=== PATIENT | male | born 1950 | race Caucasian/White ===

== ENCOUNTER → 2020-07-17 14:08 | Outpatient (BNVA) | payer MEDICARE, MEDICAID, SELFPAY | PROVIDERS: Visit Provider Anesthesiology | DX: M46.1 Sacroiliitis, not elsewhere classified (principal); M54.16 Radiculopathy, lumbar region; M51.36 Other intervertebral disc degeneration, lumbar region | CPT/HCPCS: 99202 ==

== ENCOUNTER 2020-07-23 05:41 | Outpatient (REF) | payer MEDICARE, MEDICAID, SELFPAY ==
--- NOTE | 2020-07-23 08:48 | FL_ITS ---
EXAMINATION: XR FLUOROSCOPY WITH IMAGES CLINICAL INFORMATION: Sacroiliitis. COMPARISON: None TECHNIQUE: Fluoroscopy performed by Dr. Cervantes. Fluoroscopy time: 0.2 minutes DAP: 3.67 Gycm2 Images: 3 FINDINGS: Intraoperative fluoroscopy was provided for use by Dr. Cervantes. A radiologist was not present during imaging. Today's dictation is only for administrative purposes to document intraoperative fluoroscopy. FL/FL guidance in treatment room IMPRESSION: Intraoperative fluoroscopy provided for use by Dr. Cervantes. Please see procedure note for details.
== END 2020-07-23 05:42 | disposition home or self-care (01) ==
LOC: HO.RADIR 05:41
PROVIDERS: Visit Provider Anesthesiology
DX: M46.1 Sacroiliitis, not elsewhere classified (principal); M51.36 Other intervertebral disc degeneration, lumbar region; M54.16 Radiculopathy, lumbar region
CPT/HCPCS: 27096; J3300; Q9967

== ENCOUNTER → 2020-09-04 13:34 | Outpatient (BNVA) | payer MEDICARE, MEDICAID, SELFPAY | PROVIDERS: Visit Provider Anesthesiology | DX: M46.1 Sacroiliitis, not elsewhere classified (principal); M51.36 Other intervertebral disc degeneration, lumbar region; M54.16 Radiculopathy, lumbar region; G89.4 Chronic pain syndrome | CPT/HCPCS: Q3014 ==

== ENCOUNTER 2020-10-08 13:07 | Outpatient (REF) | payer MEDICARE, MEDICAID, SELFPAY ==
--- NOTE | ~2020-10-08 | US_ITS ---
EXAMINATION: US SCROTUM CLINICAL INFORMATION: Left testicular pain. COMPARISON: None TECHNIQUE: A sonogram of the scrotum was performed assessing del rio-scale appearance and color Doppler flow. Spectral Doppler analysis of the arterial and venous flow were performed in the testes bilaterally. FINDINGS: RIGHT: Right testicle measures 3.3 x 2.0 x 2.9 cm, volume 10.0 mL. There is slightly heterogenous echotexture with no focal lesion seen. Spectral Doppler analysis of the arterial and venous flow is normal in the right testis. Right epididymal head is normal with a small anechoic cyst measuring 0.3 x 0.3 x 0.2 cm. There is a small right hydrocele. No varicocele seen. Right epididymal Doppler flow is normal. LEFT: Left testicle measures 3.7 x 2.7 x 2.6 cm, volume 13.6 mL. There is heterogenous echogenic texture of the left testes with no focal lesion seen. Spectral Doppler analysis of the arterial and venous flow is normal in the left testis. Left epididymal head is normal in size. No left varicocele is seen. There is a small left hydrocele seen. Epididymal Doppler flow is normal. US/US scrotum IMPRESSION: Heterogeneous echogenic texture both testes without any focal lesion. Bilateral hydrocele. Right epididymal head cyst. There is normal vascular flow seen to both testes and epididymides.
== END 2020-10-08 13:08 | disposition home or self-care (01) ==
LOC: HO.US 13:07
PROVIDERS: PCP Family Medicine; Visit Provider Family Medicine
DX: N50.812 Left testicular pain (principal)
CPT/HCPCS: 76870

== ENCOUNTER → 2021-05-15 08:34 | Outpatient (BNVA) | payer MEDICARE, MEDICAID, SELFPAY | PROVIDERS: PCP Family Medicine; Visit Provider Anesthesiology | DX: M46.1 Sacroiliitis, not elsewhere classified (principal); M51.36 Other intervertebral disc degeneration, lumbar region; M54.16 Radiculopathy, lumbar region; G89.4 Chronic pain syndrome | CPT/HCPCS: 99212 ==

== ENCOUNTER 2021-06-17 06:15 | Outpatient (REF) | payer MEDICARE, MEDICAID, SELFPAY ==
--- NOTE | ~2021-06-17 | FL_ITS ---
EXAMINATION: XR FLUOROSCOPY WITH IMAGES CLINICAL INFORMATION: Right shoulder pain COMPARISON: None. TECHNIQUE: Fluoroscopy performed by Thelma Cervantes NP. Fluoroscopy time: 0.4 minutes DAP: 3 Gycm2 Images: 1 FINDINGS: Image demonstrates needle placement superior to the humeral head in the subacromial region and contrast in the joint space, tracking along the subscapularis and biceps tendon. FL/FL guidance in treatment room IMPRESSION: Fluoroscopy guidance for left shoulder injection.
== END 2021-06-17 06:16 | disposition home or self-care (01) ==
LOC: HO.RADIR 06:15
PROVIDERS: Visit Provider Anesthesiology
DX: G89.29 Other chronic pain (principal); M25.511 Pain in right shoulder
CPT/HCPCS: 20610; J3300; Q9967

== ENCOUNTER → 2021-07-17 09:06 | Outpatient (BNVA) | payer MEDICARE, MEDICAID, SELFPAY | PROVIDERS: PCP Family Medicine; Visit Provider Anesthesiology | DX: M46.1 Sacroiliitis, not elsewhere classified (principal); M51.36 Other intervertebral disc degeneration, lumbar region; M54.16 Radiculopathy, lumbar region; G89.4 Chronic pain syndrome | CPT/HCPCS: 99212 ==

== ENCOUNTER 2021-08-05 06:01 | Outpatient (REF) | payer MEDICARE, MEDICAID, SELFPAY ==
--- NOTE | ~2021-08-05 | FL_ITS ---
EXAMINATION: XR FLUOROSCOPY WITH IMAGES CLINICAL INFORMATION: Left shoulder pain COMPARISON: Chest radiographs 02/24/2018 TECHNIQUE: Fluoroscopy performed by Dr. Carlos Sarah. Fluoroscopy time: 0.1 minutes DAP: 0.719 Gycm2 Images: 1 FINDINGS: There is spinal needle overlying the upper posterior left glenohumeral joint. There is contrast in the periarticular soft tissues and early intracapsular contrast. No visible vascular communication. There are degenerative changes acromioclavicular joint. FL/FL guidance in treatment room IMPRESSION: Fluoroscopy for pain management procedure.
== END 2021-08-05 06:02 | disposition home or self-care (01) ==
LOC: HO.RADIR 06:01
PROVIDERS: Visit Provider Anesthesiology
DX: G89.29 Other chronic pain (principal); M25.512 Pain in left shoulder; M46.1 Sacroiliitis, not elsewhere classified; M51.36 Other intervertebral disc degeneration, lumbar region; M54.16 Radiculopathy, lumbar region; E78.5 Hyperlipidemia, unspecified; I25.2 Old myocardial infarction
CPT/HCPCS: 20610; 77002; J3300; Q9967

== ENCOUNTER → 2021-09-11 08:07 | Outpatient (BNVA) | payer MEDICARE, MEDICAID, SELFPAY | PROVIDERS: PCP Family Medicine; Visit Provider Anesthesiology | DX: M46.1 Sacroiliitis, not elsewhere classified (principal); M51.36 Other intervertebral disc degeneration, lumbar region; M54.16 Radiculopathy, lumbar region; G89.4 Chronic pain syndrome | CPT/HCPCS: 99212 ==

== ENCOUNTER 2022-03-23 10:30 | Outpatient (REF) | payer MEDICARE, MEDICAID, SELFPAY ==
--- NOTE | ~2022-03-23 | XR_ITS ---
EXAMINATION: XR ANKLE, LEFT XR FOOT, LEFT CLINICAL INFORMATION: Pain left ankle, foot and medial heel. COMPARISON: None. TECHNIQUE: 2 views left ankle and 3 views left foot. FINDINGS: Left Foot: There is no visible acute fracture, dislocation or subluxation seen. No bony erosive changes. There are subchondral cystic changes proximal phalanx PIP joint. The soft tissues are normal. Left Ankle: There are hypertrophic bony changes along the medial malleolus. No visible acute fracture or dislocation seen. Ankle mortise and subtalar joints are normal. There are small calcaneal heel and retrocalcaneal enthesophytes. The soft tissues are normal. XR/XR foot LT min 3V IMPRESSION: Unremarkable left foot except for mild subchondral cystic change proximal phalanx at the PIP joint 1st digit. Small calcaneal heel and retrocalcaneal enthesophytes.
--- NOTE | ~2022-03-23 | XR_ITS ---
EXAMINATION: XR ANKLE, LEFT XR FOOT, LEFT CLINICAL INFORMATION: Pain left ankle, foot and medial heel. COMPARISON: None. TECHNIQUE: 2 views left ankle and 3 views left foot. FINDINGS: Left Foot: There is no visible acute fracture, dislocation or subluxation seen. No bony erosive changes. There are subchondral cystic changes proximal phalanx PIP joint. The soft tissues are normal. Left Ankle: There are hypertrophic bony changes along the medial malleolus. No visible acute fracture or dislocation seen. Ankle mortise and subtalar joints are normal. There are small calcaneal heel and retrocalcaneal enthesophytes. The soft tissues are normal. XR/XR ankle LT 2V IMPRESSION: Unremarkable left foot except for mild subchondral cystic change proximal phalanx at the PIP joint 1st digit. Small calcaneal heel and retrocalcaneal enthesophytes.
== END 2022-03-23 10:31 | disposition home or self-care (01) ==
LOC: HO.XRAY 10:30
PROVIDERS: Absent Provider Family Medicine; PCP Family Medicine; Visit Provider Family Medicine
DX: M25.572 Pain in left ankle and joints of left foot (principal)
CPT/HCPCS: 73600; 73630

== ENCOUNTER 2023-11-30 08:32 | Outpatient (REF) | payer OTHER, SELFPAY ==
[2023-11-30 14:24] LABS: MANUAL DIFF FLAG NO
[2023-11-30 14:38] LABS: Basophils Absolute Auto 0.1 X10*3/uL (0.0-0.2); Basophils Percent Auto 1.1 % (0-2); Eosinophils Absolute Auto 0.3 X10*3/uL (0.0-0.4); Eosinophils Percent Auto 4.6 % (0-4); Hematocrit 39.6 % (42.0-52.0); Hemoglobin 13.3 g/dl (14.0-18.0); Imm Gran Abs Auto 0.01 X10*3/uL (0.00-0.03); Imm Gran Pct Auto 0.2 % (0.0-0.4); Lymphocytes Absolute Auto 1.7 X10*3/uL (1.2-4.9); Lymphocytes Percent Auto 30.7 % (20-40); Mean Corpuscular HGB Conc 33.6 g/dl (31.0-36.0); Mean Corpuscular Hemoglobin 29.9 pg (27.0-33.0); Mean Platelet Volume 9.8 fL (9.4-12.4); Monocytes Absolute Auto 0.5 X10*3/uL (0.1-1.2); Monocytes Percent Auto 9.2 % (2-11); Neutrophils Absolute Auto 3.1 x10*3/uL (2.0-8.3); Neutrophils Percent Auto 54.2 % (45-73); Platelet Count 257 X10*3/uL (160-400); Red Blood Count 4.45 X10*6/uL (4.60-5.80); Red Cell Distribution Width 13.8 % (11.0-16.0); White Blood Count 5.7 X10*3/uL (4.8-10.8)
[2023-11-30 14:53] LABS: Alanine Aminotransferase 50 U/L (0-40); Albumin Level 4.5 g/dL (3.5-5.0); Alkaline Phosphatase 87 U/L (39-117); Anion Gap 13 (12-20); Aspartate Amino Transferase 40 U/L (5-37); Bilirubin Total 0.8 mg/dL (0.0-1.0); Blood Urea Nitrogen 14 mg/dL (9-16); Calcium 9.3 mg/dL (8.4-10.2); Carbon Dioxide 27 mmol/L (22-29); Chloride 106 mmol/L (96-108); Cholesterol 169 mg/dL (<200); Estimated Glomerular Filt Rate > 60; Glucose Random 86 mg/dL (60-115); HDL Cholesterol 51 mg/dL (>40); LDL Cholesterol Calculated 102 mg/dL (<100); Potassium 3.9 mmol/L (3.3-5.1); Sodium 142 mmol/L (135-145); Total Protein 7.6 g/dL (6.5-8.0); Triglycerides 80 mg/dL (<150); Uric Acid 6.7 mg/dL (3.4-7.0)
[2023-11-30 15:09] LABS: TSH reflex Free T4 1.47 uIU/mL (0.32-4.0)
== END 2023-11-30 08:33 | disposition home or self-care (01) ==
LOC: HO.CHCLDS 08:32
PROVIDERS: Visit Provider Family Medicine
DX: E78.5 Hyperlipidemia, unspecified (principal)
CPT/HCPCS: 36415; 80053; 80061; 84443; 84550; 85025

== ENCOUNTER 2023-12-30 09:25 | Outpatient (REF) | payer OTHER, SELFPAY ==
[2023-12-30 14:55] LABS: Alanine Aminotransferase 28 U/L (0-40); Albumin Level 4.6 g/dL (3.5-5.0); Alkaline Phosphatase 91 U/L (39-117); Anion Gap 13 (12-20); Aspartate Amino Transferase 20 U/L (5-37); Bilirubin Total 0.6 mg/dL (0.0-1.0); Blood Urea Nitrogen 17 mg/dL (9-16); Calcium 9.5 mg/dL (8.4-10.2); Carbon Dioxide 27 mmol/L (22-29); Chloride 107 mmol/L (96-108); Estimated Glomerular Filt Rate > 60; Gamma Glutamyl Transpeptidase 15 U/L (11-51); Glucose Random 87 mg/dL (60-115); Sodium 143 mmol/L (135-145); Total Protein 7.6 g/dL (6.5-8.0)
[2023-12-31 04:51] LABS: HBS Num1 0.73 mIU/mL (0-7.99); HBc Num1 0.05 S/CO (0.00-0.79); HBsAGNum1 0.34 S/CO (0.00-0.99); Hepatitis A Antibody IgM 0.22 Index (0-0.79); Hepatitis B Core Antibody Nonreactive (Nonreactive); Hepatitis B Surface Antigen Negative (Negative); ~HepC Num1 0.12 S/CO (0.00-0.79); ~Hepatitis A Antibody IgM Nonreactive (Nonreactive); ~Hepatitis B Surface Antibody NONREACTIVE (Nonreactive); ~Hepatitis C Antibody Nonreactive (Nonreactive)
== END 2023-12-30 09:26 | disposition home or self-care (01) ==
LOC: HO.CHCLDS 09:25
PROVIDERS: Visit Provider Family Medicine
DX: R74.01 Elevation of levels of liver transaminase levels (principal)
CPT/HCPCS: 36415; 80053; 82977; 86704; 86706; 86709; 86803; 87340

== ENCOUNTER 2024-12-07 15:56 | Outpatient (REF) | payer OTHER, SELFPAY ==
--- OUTSIDE RECORDS SUMMARY | 2024-12-07 17:27 | XMS_ITS | Clinical Summary ---
Author Organization [facility] [address] [facility] Address [address] [place] [address] Phone Care Team Providers Care Soil Fertility Specialist Name Role Phone Isela Figueroa APN Primary Care Provider [phone] Social History Tobacco Use Types Packs/Day Years Used Date Smoking Tobacco: Never Assessed Sex and Gender Information Value Date Recorded Sex Assigned at Not on file Legal Sex Male 10:39 PM EST Gender Identity Not on file Sexual Orientation Not on file Plan of Treatment Health Maintenance Due Date Last Done Comments DTaP,Tdap,and Td Vaccines (1 - Tdap) 11/14/1970 Pneumococcal Vaccine: 50+ Ye ars (1 of 1 - PCV) 11/14/2001 Zoster Vaccines (1 of 2) 11/14/2001 Abdominal Aortic Aneurysm (A AA) Screen 07/12/2022 Cholesterol Screening (Lipid Panel) 07/12/2022 Colorectal Cancer Screening: Colonoscopy 07/12/2022 Depression Screening 07/12/2022 Falls Risk Assessment 07/12/2022 Hepatitis C Screening 07/12/2022 Social Influencers of Health Screening 07/12/2022 Hypertension/CHF/CAD Annual BMP Blood Test 09/24/2023 COVID-19 Vaccine ( - 2023-2 5 season) 2024 Influenza Vaccine (Season Ended) 2025 RSV Immunization Adult Patie nts (1 - 1-dose 75+ series) 11/14/2026 HIB Vaccines Aged Out No longer eligi ble based on patient's age to complete this topic HPV Vaccines Aged Out No longer eligi ble based on patient's age to complete this topic Hepatitis A Vaccines Aged Out No long er eligible based on patient's age to complete this topic Hepatitis B Vaccines Aged Out No long er eligible based on patient's age to complete this topic IPV Vaccines Aged Out No longer eligi ble based on patient's age to complete this topic MMR Vaccines Aged Out No longer eligi ble based on patient's age to complete this topic Meningococcal ACWY Vaccine Aged Out N o longer eligible based on patient's age to complete this topic Meningococcal B Vaccine Aged Out No l onger eligible based on patient's age to complete this topic RSV Immunization Patients Un pratima 20 months Aged Out No longer eligible b ased on patient's age to complete this topic Varicella Vaccines Aged Out No longer eligible based on patient's age to complete this topic [place] [address] [place] [address] Member Subscriber Plan / Payer (Ef fective 2023-Present) Name:Luis Antonio Woods Relation to Subscriber:Self Name:Luis Antonio Woods Payer ID:[id number] Group ID:[id number] Type:Not on file Address: [place] [address] [address] [address] Care Teams Soil Fertility Specialist Relationship Specialty Start Date End Date Isela Figueroa APN [address] [place] [address], [address] [place] [address] PCP - General 12/19/13
--- OUTSIDE RECORDS SUMMARY | 2024-12-07 17:27 | XMS_ITS | Encounter Summary ---
Author Organization [employer] Address [address] [facility] 7t [place] [address] Care Team Providers Care Top Waddy Name Role Phone Pao Hernandez MD Primary Care Provider [phone] Reason for Visit * Reason Comments Pre-visit Planning SDOH screening posit christoph and Tobacco screening negative Encounter Details Date Type Department Care Team ([facility] st Contact Info) Description 12/07/2024 Patient Outreach [facility] MEDICINE [address] [place] [address] Pao Hernandez MD [address] [place], [place] [phone] Pre-visit Planning (SDOH screening positive and Tobacco screening negative) Social History Tobacco Use Types Packs/Day Years Used Date Smoking Tobacco: Never Passive Smoke Exposure: Never Smokeless Tobacco: Never Alcohol Use Standard Drinks/Week Comments Never 0 (1 standard drink = 0.6 oz pur e alcohol) Alcohol Answer Date Recorded Frequency of Alcohol Consumption Not on file 05/25/2024 Average Number of Drinks Not on file 024 Frequency of Binge Drinking Not on file 05/09 Score 0 05/25/2024 Depression Answer Date Recorded Patient Health Questionnaire-9 Score 0 05/25/2024 Patient Health Questionnaire-9 Score 0 05/25/2024 Last PHQ-9: Questionnaire Data Not on file 1 Housing Stability Answer Date Recorded What is your housing situation today? I have cy jackson 12/07/[address] you li ve. Do you have problems with any of the following? Pests such as bugs, ants, or mice 12/07/2024 Food Insecurity Answer Date Recorded Within the past 12 months, y ou worried that your food would run out before you got money to buy more: Sometimes True 2024 Within the past 12 months,th e food you bought just didn't last and you didn't have enough money to get more: Sometimes True 12/07/2024 Transportation Answer Date Recorded In the past 12 months, has l ack of transportation kept you from medical appts, meetings, work or from getting things needed for daily living? No 12/07/2024 Utilities Answer Date Recorded In the past 12 months, has t he electric, gas, oil or water company threatened to shut off services in your home? No 12/07/2024 Depression Answer Date Recorded Patient Health Questionnaire-2 Score 0 05/25/2024 Internet Access Answer Date Recorded Internet Access Q1 Yes 12/07/2024 Internet Access Q2 Not on file 12/07/2024 Sex and Gender Information Value Date Recorded Sex Assigned at Male 06/08/2022 10:14 AM EDT Legal Sex Male 10:14 AM EDT Gender Identity Male 06/08/2022 10:14 AM EDT Sexual Orientation Straight 06/08/2022 10 :14 AM EDT documented as of this encounter Progress Notes * Rashaun Randall - 12/07/2024 12:21 PM EDT CC Rashaun Villa placed successful outbound call to patient for pre-visit planning. Patient name and confirmed. Patient confirms appt date and time, and has transportation arrangements. Biggest concern for appointment at this time is leg swellings and pain. Patient educated on extended clinic hourson Mondays and Wednesdays, and Walk-In Urgent Care Located in [facility]. Patient provided with after-hours line for [facility], , which offer night time triage service and option to transfer to publicity consultant provider if needed. Patient advised to bring to appointment a photo id and insurance card. Appropriate screenings completed in anticipation of appointment. SDOH positive. Patient looking for assistance with PESTS; Roaches and food insecurities. Referral will be placed. documented in this encounter Plan of Treatment Upcoming Encounters Date Type Department Care Team (Late st Contact Info) Description 12/14/2024 11:30 AM EDT Office Visit [facility] MED & PEDS [address] [place] [address] Pao Hernandez MD [address] [place] [address] 12/21/2024 2:00 PM EDT Clinical Support [facility] MED & PEDS [address] [place] [address] Jerri Jeffries, JASSON [address] [place] [address] documented as of this encounter Visit Diagnoses Not on filedocumented in this encounter Additional Health Concerns Assessment Noted Time PHQ-9 Depression Total Score: 0 05/25/20 24 10:08 AM EDT documented as of this encounter Care Teams Top Waddy Relationship Specialty Start Date End Date Pao Hernandez MD [address] [place] [address] PCP - General Family Medicine 06/21/20 documented as of this encounter
--- OUTSIDE RECORDS SUMMARY | 2024-12-07 17:27 | XMS_ITS | Encounter Summary ---
Author Organization [employer] Address [address] [facility] [address] 7t [place] [address] Care Team Providers Care Mill Turner Name Role Phone Pao Hernandez MD Primary Care Provider [phone] Reason for Visit * Reason Comments Care Coordination CHW outreach for SDO H food - LVM Encounter Details Date Type Department Care Team (Latest Contact Info) Description 12/07/2024 Patient Outreach [facility] MEDICINE [address] [place] [address] Pao Hernandez MD [address] [place] [address] Care Coordination (CHW outreach for SDOH food - LVM ) Social History Tobacco Use Types Packs/Day Years [...] as of this encounter Progress Notes * Jerson Potter - 12/07/2024 1:20 PM EDT CHW Jerson Potter, placed outbound call to patient for assistance with SDOH as a referral was placed by the provider. Patient had screened positive for the following SDOH insecurities. No answer atthis time. Patient's name and were not confirmed. CHW left detailed message and provided contact information requesting return call for assistance. Patient educated on extended clinic hours on Mondays through Wednesdays, and Walk-In Urgent Care Located in [facility]. Patient provided with after-hours line for [facility], , which offer night time triage service and option to transfer toon call provider if needed. documented in this encounter Plan of Treatment Upcoming Encounters Date Type Department Care Team ([facility] st Contact Info) Description 12/14/2024 11:30 AM EDT Office Visit [facility] MED & PEDS [address] [place] [address] Pao Hernandez MD [address] [place] [address] 12/21/2024 2:00 PM EDT Clinical Support [facility] MED & PEDS [address] [place] [address] Jerri Jeffries, JASSON [address] [place], [place] [phone] documented as of this encounter Visit Diagnoses Not on filedocumented in this encounter Additional Health Concerns Assessment Noted Time PHQ-9 Depression Total Score: 0 05/25/20 24 10:08 AM EDT documented as of this encounter Care Teams Mill Turner Relationship Specialty Start Date End Date Pao Hernandez MD [address] [place] [address] PCP - General Family Medicine 06/21/20 documented as of this encounter
--- OUTSIDE RECORDS SUMMARY | 2024-12-07 17:27 | XMS_ITS | Encounter Summary ---
Author Organization [employer] Address [address] [facility] 7t [place] [address] Care Team Providers Care Behavioral Therapy Coordinator Name Role Phone Pao Hernandez MD Primary Care Provider Reason for Visit * Reason Comments Med Refill Encounter Details Date Type Department Care Team ([facility] st Contact Info) Description 11/13/2022 Refill [facility] MED & PEDS [address] [place], [place] [phone] Pao Hernandez MD [address] [place], [place] [phone] Social History Tobacco Use Types Packs/Day Years Used Date Smoking Tobacco: Never Passive Smoke Exposure: Never Smokeless Tobacco: Never Alcohol Use Standard Drinks/Week Comments Never 0 (1 standard drink = 0.6 oz pur e alcohol) Depression Answer Date Recorded Patient Health Questionnaire-9 Score 2 11/05/2022 Depression Answer Date Recorded Patient Health Questionnaire-2 Score 2 11/05/2022 Sex and Gender Information Value Date Recorded Sex Assigned at Male 06/08/2022 10:14 AM EDT Legal Sex Male 10:14 AM EDT Gender Identity Male 06/08/2022 10:14 AM EDT Sexual Orientation Straight 06/08/2022 10 :14 AM EDT COVID-19 Exposure Response Date Recorded In the last 10 days, have yo u been in contact with someone who was confirmed or suspected to have Coronavirus/COVID-19? No / Unsure 11/12/2022 3:20 PM EDT documented as of this encounter Miscellaneous Notes * Telephone Encounter - Pao Hernandez MD - 11/16/2022 8:48 AM EDT Filled by other means documented in this encounter Plan of Treatment Upcoming Encounters Date Type Department Care Team (Late st Contact Info) Description 12/14/2024 11:30 AM EDT Office Visit [facility] MED & PEDS [address] [place] [address] Pao Hernandez MD [address] [place] [address] 12/21/2024 2:00 PM EDT Clinical Support [facility] MED & PEDS [address] [place] [address] Jerri Jeffries, JASSON [address] [place] [address] documented as of this encounter Visit Diagnoses Not on filedocumented in this encounter Additional Health Concerns Assessment Noted Time PHQ-9 Depression Total Score: 2 11/06/19 23 11:13 AM EDT documented as of this encounter Care Teams Behavioral Therapy Coordinator Relationship Specialty Start Date End Date Pao Hernandez MD [address] [place] [address] PCP - General Family Medicine 06/21/20 documented as of this encounter
--- OUTSIDE RECORDS SUMMARY | 2024-12-07 17:27 | XMS_ITS | Encounter Summary ---
Author Organization [employer] Address [address] [facility] 7t [place] [address] Care Team Providers Care City Assessor Name Role Phone Pao Hernandez MD Primary Care Provider [phone] Reason for Visit * Reason Comments Med Refill Encounter Details Date Type Department Care Team ([facility] st Contact Info) Description 08/25/[address] [facility] CH[facility] MED & PEDS [address] [place], [place] [phone] Pao Hernandez MD [address] [place], [place] [phone] Lumbosacral spondylosis without myelopathy Social History Tobacco Use Types Packs/Day Years [...] housing situation today? I have cy jackson 05/31/[address] you li ve. Do you have problems with any of the following? None of the above 05/31/2023 Food Insecurity Answer Date Recorded Within the past 12 months, y ou worried that your food would run out before you got money to buy more: Never True 05/31/2023 Within the past 12 months,th e food you bought just didn't last and you didn't have enough money to get more: Never True Transportation Answer Date Recorded In the past 12 months, has l ack of transportation kept you from medical appts, meetings, work or from getting things needed for daily living? No 05/31/2023 Utilities Answer Date Recorded In the past 12 months, has t he electric, gas, oil or water company threatened to shut off services in your home? No 05/31/2023 Depression Answer Date Recorded Patient Health Questionnaire-2 Score 0 05/25/2024 Sex and Gender Information Value Date Recorded Sex Assigned at Male 06/08/2022 10:14 AM EDT Legal Sex Male 10:14 AM EDT Gender Identity Male 06/08/2022 10:14 AM EDT Sexual Orientation Straight 06/08/2022 10 :14 AM EDT documented as of this encounter Plan of Treatment Upcoming Encounters Date Type Department Care Team (Late st Contact Info) Description 12/14/2024 11:30 AM EDT Office Visit [facility] MED & PEDS [address] [place] [address] Pao Hernandez MD [address] [place] [address] 12/21/2024 2:00 PM EDT Clinical Support [facility] MED & PEDS [address] [place] [address] Jerri Jeffries, JASSON [address] [place] [address] documented as of this encounter Visit Diagnoses Diagnosis Lumbosacral spondylosis without myelopathy documented in this encounter Additional Health Concerns Assessment Noted Time PHQ-9 Depression Total Score: 0 05/25/20 24 10:08 AM EDT documented as of this encounter Care Teams City Assessor Relationship Specialty Start Date End Date Pao Hernandez MD [address] [place] [id number] PCP - General Family Medicine 06/21/20 documented as of this encounter
--- OUTSIDE RECORDS SUMMARY | 2024-12-07 17:27 | XMS_ITS | Encounter Summary ---
Author Organization [employer] Address [address] [facility] [address] 7[address] [place] [address] Care Team Providers Care Gas Substation Operator Name Role Phone Pao Hernandez MD Primary Care Provider [phone] Encounter Details Date Type Department Care Team ([facility] Contact Info) Description 09/28/2024 Telephone C OPTOMETRY [address] [place], [place] [phone] Ramona Eubanks, OD [address] [place], [place] [phone] Social History Tobacco Use Types Packs/Day Years [...] AM EDT documented as of this encounter Miscellaneous Notes * Telephone Encounter - Ramona Berger - 09/28/2024 3:49 PM EST Date of Service: Referral to Ophthalmology Patient Name: MRN: : Phone: [employer] # SUBSCRIBER ID Referring Provider Information: Kimberly Fernandez OD PCP: Appointment: Date: Time: Urgency: Referral Type: Diagnosis: Refer to Provider: PRICILLA GILES Address: [facility] [address] [place] [address] documented in this encounter Plan of Treatment Upcoming Encounters Date Type Department Care Team (Late st Contact Info) Description 12/14/2024 11:30 AM EDT Office Visit [facility] MED & PEDS [address] [place] [address] Pao Hernandez MD [address] [place] [address] 12/21/2024 2:00 PM EDT Clinical Support [facility] MED & PEDS [address] [place] [address] Jerri Jeffries RN [address] [place] [address] documented as of this encounter Visit Diagnoses Not on filedocumented in this encounter Additional Health Concerns Assessment Noted Time PHQ-9 Depression Total Score: 0 05/25/20 24 10:08 AM EDT documented as of this encounter Care Teams Gas Substation Operator Relationship Specialty Start Date End Date Pao Hernandez MD [address] [place] [address] PCP - General Family Medicine 06/21/20 documented as of this encounter
--- OUTSIDE RECORDS SUMMARY | 2024-12-07 17:28 | XMS_ITS | Encounter Summary ---
Author Organization [employer] Address [address] [facility] [address] 7[address] [place] [address] Care Team Providers Care Prosthodontist/Educator Name Role Phone Pao Hernandez MD Primary Care Provider [phone] Encounter Details Date Type Department Care Team ([facility] Contact Info) Description 09/28/2024 Telephone C OPTOMETRY [address] [place], [place] [phone] Ramona Eubanks, OD [address] [place], [place] [phone] Social History Tobacco Use Types Packs/Day Years [...] Telephone Encounter - Ramona Berger - 09/28/2024 3:57 PM EST Date of Service: Referral to Ophthalmology Patient Name: MRN: : Phone: [employer] # SUBSCRIBER ID Referring Provider Information: Kimberly Fernandez OD PCP: Appointment: Date: Time: Urgency: Referral Type: Diagnosis: Refer to Provider: PRICILLA GILES Address: [facility] [address] [place] [address] documented in this encounter Plan of Treatment Upcoming Encounters Date Type Department Care Team (Late st Contact Info) Description 12/14/2024 11:30 AM EDT Office Visit [facility] MED & PEDS [address] [place] [address] Pao Hernandez MD [address] [place] [address] 12/21/2024 2:00 PM EDT Clinical Support [facility] MED & PEDS [address] [place] [address] Jerri Jeffries RN [address] [place] [address] documented as of this encounter Visit Diagnoses Not on filedocumented in this encounter Additional Health Concerns Assessment Noted Time PHQ-9 Depression Total Score: 0 05/25/20 24 10:08 AM EDT documented as of this encounter Care Teams Prosthodontist/Educator Relationship Specialty Start Date End Date Pao Hernandez MD [address] [place] [address] PCP - General Family Medicine 06/21/20 documented as of this encounter
--- OUTSIDE RECORDS SUMMARY | 2024-12-07 17:28 | XMS_ITS | Clinical Summary ---
Author Organization [employer] Address [address] [facility] 7t [place] [address] Care Team Providers Care Mica Parts Sprayer Name Role Phone Pao Hernandez MD Primary Care Provider [phone] Allergies No known active allergies Medications aspirin 81 MG chewable tablet Chew 1 tablet 1 (one) time each day. 08/13/19 22 Active cholecalciferol (Vitamin D-3) 50 MCG (2000 UT) capsule Take 1 capsule by mouth 1 (one) time each day. 08/13/19 22 Active Cyanocobalamin (Vitamin B-12 ER) 1000 MCG tablet controlled-relea seIndications:Vi tamin B12 deficiency TAKE 1 TABLET BY MOUTH EVERY DAY 90 tablet 4 01/07/20 23 Active Blood Pressure kit 1 Units in the morning. 1 kit 05/14/20 23 Active naloxone (Narcan) 4 mg/0.1 mL nasal spray Administer 1 spray (4 mg) into affected nostril(s) if needed for opioid reversal. 2 each 05/14/20 23 Active diclofenac (Cataflam) 50 MG tablet TAKE ONE TABLET THREE TIMES DAILY IN THE MORNING, AT NOON, AND AT BEDTIME FOR PAIN 90 tablet 01/18/20 24 Active hydrALAZINE (Apresoline) 10 MG tablet Take 1 tablet (10 mg) by mouth 2 times daily. 60 tablet 11 04/14/20 24 025 Active lisinopril 40 MG tabletIndication s:Essential hypertension Take 1 tablet (40 mg) by mouth Once per day. 90 tablet 1 04/14/20 24 Active amLODIPine (Norvasc) 10 MG tabletIndication s:Essential hypertension Take 1 tablet (10 mg) by mouth Once per day. 90 tablet 1 04/14/20 24 Active metoprolol succinate XL (Toprol-XL) 25 MG 24 hr tablet Take 1 tablet (25 mg) by mouth Once per day. 90 tablet 1 04/14/20 24 Active nitroglycerin (Nitrostat) 0.[address] 1 tablet (0.4 mg) under the tongue every 5 (five) minutes if needed for chest pain. 5 tablet 04/24/20 24 Active pantoprazole (ProtoNix) 20 MG EC tabletIndication s:Gastroesophage al reflux disease, unspecified whether esophagitis present TAKE 1 TABLET BY MOUTH DAILY 90 tablet 1 05/10/20 24 Active tadalafil (Cialis) 20 MG tablet Take 1 tablet (20 mg) by mouth if needed each day for erectile dysfunction. 10 tablet 2 05/25/20 24 Active Ketotifen Fumarate 0.035 % solution Administer 1 drop into affected eye(s) if needed in the morning and at bedtime (eye itchiness). 10 mL 2 06/07/20 24 Active atorvastatin (Lipitor) 40 MG tablet TAKE 1 TABLET BY MOUTH DAILY AT BEDTIME 90 tablet 1 08/07/20 24 Active allopurinol (Zyloprim) 100 MG tabletIndication s:Gout, unspecified cause, unspecified chronicity, unspecified site TAKE ONE TABLET EVERY DAY 90 tablet 1 11/07/19 25 Active oxyCODONE-acetam inophen (Percocet) 5-325 MG tabletIndication s:Lumbosacral spondylosis without myelopathy TAKE ONE TABLET EVERY 6 HOURS NEEDED FOR SEVERE PAIN 112 tablet 11/25/19 25 Active Aspirin Low Dose 81 MG EC tablet Take 1 tablet by mouth Once per day. 11/24/19 25 Active furosemide (Lasix) 40 MG tablet Take 1 tablet (40 mg) by mouth Once per day for 7 days. 7 tablet 12/08/19 25 025 Active oxyCODONE-acetam inophen (Percocet) 5-325 MG tabletIndication s:Lumbosacral spondylosis without myelopathy TAKE ONE TABLET EVERY 6 HOURS NEEDED FOR SEVERE PAIN 112 tablet 10/27/19 25 025 Discontinued Active Problems Problem Noted Date Diagnosed Date Long-term current use of opiate analgesic 2024 Right foot pain 11/04/2023 Assessment & Plan (11/05/2023 10:19 AM EDT): Ddx plantar fasciitis, reports he will want to be sent to another meat cutting block repairer. - Plan to refer him to another meat cutting block repairer, Dr. Amador, for a second opinion and comprehensive evaluation. Also, recommend physical therapy at [facility] to address musculoskeletal components of his pain Right ankle pain 07/16/2023 Assessment & Plan (02/04/2024 7:32 AM EDT): Pt was advised to make an appointment with his Shipping And Receiving Operator since his R ankle pain has become more severe. -Pt did not go see his Shipping And Receiving Operator with the last referral -Pt denied injection to relieve pain Assessment & Plan (07/16/2023 1:54 PM EST): Patient that presented visit with complaints of R ankle pain will be referred to Podiatry. Back problem 05/14/2023 Arthritis of both knees 05/14/2023 Dietary counseling 05/14/2023 Chronic right shoulder pain 03/08/2023 Assessment & Plan (06/07/2024 11:44 AM EDT): Advised to contact insurance for DISCHARGING MACHINE OPERATOR coverage. Administered steroid injection into right shoulder, discussed with pt possible Sx over the next 72hrs. Assessment & Plan (03/08/2023 7:59 PM EDT): Patient reports recurrence of pain around 1 month ago, reports he did have relief for 2 months but not since. Tolerated procedure well. Ventral hernia without obstruction or gangrene 0 11/05/2022 Assessment & Plan (07/16/2023 1:52 PM EST): Surgery incision was examined at the time of visit: no signs of infection, however, erythema is present around affected area. Therefore, patient will be prescribed topical antibiotic to apply on surgery-site x10 days. In addition, will also be prescribing antibiotic tabs x7 days. Recommended to notify office or visit ED if erythema exacerbates ir area looks infected. Assessment & Plan (11/05/2022 4:58 PM EDT): Patient with left sided area that he feels a mass, unable to appreciate on exam, patient feels he has a protrusion ? Herniation, will send for imaging and f/up with results. Chronic left shoulder pain 10/15/2022 Assessment & Plan (07/12/2024 3:58 PM EST): Ordering XR of left shoulder for further evaluation. Will reassess steroid injection next visit. Degeneration of lumbosacral intervertebral disc 07/20/2022 Coronary artery disease invo lving soboba coronary artery of soboba heart without angina pectoris 12/27/2018 Vitamin D deficiency 10/25/2017 Cobalamin deficiency 10/25/2017 Hypertrophy of bladder 08/05/2016 Chronic back pain 05/05/2013 Contracture of palmar fascia 03/16/2012 Lumbosacral spondylosis without myelopathy 03/16 Diverticular disease of colon 03/16/2012 Gastroesophageal reflux disease 03/16/2012 Generalized osteoarthritis 03/16/2012 Gout 03/16/2012 Assessment & Plan (04/14/2024 4:15 PM EDT): Discussed medication refills as needed. Lumbago-sciatica due to disp lacement of lumbar intervertebral disc 03/16/2012 Assessment & Plan (05/20/2023 8:59 AM EDT): Patient with chronic back pain and bilateral knee arthritis. He has difficulties going up and down the stairs. He is requesting a letter for reasonable accomodation. He uses a cane as a mobility device, will benefit of walker but he prefers cane. Recommended patient to bring forms to HIM to fill out. Spinal stenosis of lumbar region 03/16/2012 Benign prostatic hyperplasia without urinary obs truction 01/27/2012 Essential hypertension 01/27/2012 Assessment & Plan (07/13/2024 1:59 PM EST): Hold off med changes, reports didn't take meds today Assessment & Plan (05/25/2024 11:23 AM EDT): Pt BP at the time of visit was 136/60. Pt was advised to maintain adherence to medications. No change in meds necessary at this time. Assessment & Plan (04/14/2024 4:13 PM EDT): Pt has not been taking medications as prescribed. Begin Lisinopril 40 mg + Amlodipine 10 mg + Metoprolol 25 mg + Hydralazine 10 mg. Follow up with nurse on 04/18 with all medications and BP recheck. Relevant Medications Metoprolol Succinate XL (Toprol-XL) 25 mg tablet Hydralazine (Apresoline) 10 mg tablet Assessment & Plan (02/04/2024 7:36 AM EDT): Pts BP at the time of visit 156/82 -F/u with nurse on BP -Will be monitoring BP readings and determine then if medication adjustment is necessary. Assessment & Plan (11/29/2023 4:47 PM EDT): Controlled, continue on current medication. Assessment & Plan (07/16/2023 1:54 PM EST): Uncontrolled: patient presented visit with mild elevated blood pressure with readings of 147/70 mmHg. Recommended to keep taking medications; will not make any changes at this time. Advised patient to keep monitoring blood pressure at home, and bring readings upon next office visit. * Had blood pressure retaken at the time of visit with readings of 134/72 mmHg. Assessment & Plan (05/20/2023 8:58 AM EDT): Uncontrolled, reviewed patients medications and it seems he was missing one of them. Reviewed meds with patient and he will monitor, hold off changes at this moment. -Will send Blood Pressure Kit -Advised to keep monitoring blood pressure at home. Hyperlipidemia 01/27/2012 Assessment & Plan (11/29/2023 4:47 PM EDT): Ordering lab work for further monitoring. Other and unspecified angina pectoris 01/27/2012 Peripheral vascular disease 01/27/2012 Pure hypercholesterolemia 01/27/2012 Thyrotoxicosis 08/16/2011 Resolved Problems Problem Noted Date Diagnosed Date Resolved Date Blurry vision, bilateral 07/16/2023 Assessment & Plan (07/16/2023 1:54 PM EST): Patient that presented visit with complaints of blurry vision will be referred to [facility]. Encounters Date Type Department Care Team Description 12/07/2024 3:20 PM EDT Office Visit [facility] [address] [place] [address] Zoe Garvin MD Localized edema (Primary Dx); Essential hypertension; Coronary artery disease involving soboba coronary artery of soboba heart without angina pectoris 12/07/2024 Travel 12/07/2024 Patient Outreach [address] [address] Pao Hernandez MD Care Coordination (CHW outreach for SDOH food - LVM ) 12/07/2024 Patient Outreach [address] [address] Pao Hernandez MD Pre-visit Planning (SDOH screening positive and Tobacco screening negative) 11/23/2024 Refill [facility] [address] [place] [address] Zoe Garvin MD Lumbosacral spondylosis without myelopathy 11/09/2024 2:45 PM EDT Office Visit [facility] [address] [place] [address] Rula Benavides MD Pre-op evaluation (Primary Dx) 11/09/2024 Travel 11/07/[address] [address] Pao Hernandez MD pre-op 11/04/2024 Refill [facility] [address] [place] [address] Pao Hernandez MD Gout, unspecified cause, unspecified chronicity, unspecified site 10/26/2024 1:30 PM EDT Clinical Support [facility] [address] [place] [address] Jerri Jeffries, speech professor left shoulder pain (Primary Dx); Long-term current use of opiate analgesic 10/26/2024 Refill [facility] [address] [place] [address] Rula Benavides MD Lumbosacral spondylosis without myelopathy 10/26/2024 Travel 09/28/2024 Telephone [facility] [address] [place] [address] Ramona Eubanks, OD 09/28/2024 Telephone [facility] [address] [place] [address] Ramona Eubanks, OD 09/26/2024 Refill [facility] [address] [place] [address] Ishaan Mueller MD Lumbosacral spondylosis without myelopathy 09/22/2024 1:00 PM EST Office Visit [facility] [address] [place] [address] Ramona Eubanks, OD Combined forms of age-related cataract of both eyes (Primary Dx); Anatomical narrow angle of both eyes; Presbyopia 09/22/2024 Travel from Last 3 Months Immunizations Name Administration Dates Next Due Influenza High-dose Quadriva lent Preservative Free 05/14/2023,05/08/2021 Influenza Quadrivalent Adjuvanted 05/14/2020 Influenza injectable quadriv alent IIV4 with preservative 06/23/2017 Influenza injectable quadriv alent preservative free 05/03/2015 Influenza, High Dose Seasona l, Preservative Free 04/24/2024,10/19/2019 Influenza, IIV3, injectable 05/01/2011 Influenza, Split (incl. carole fied surface antigen) 05/05/2013 Influenza, seasonal, injecta ble, preservative free 05/13/2016,05/29/2014 Moderna Covid-19 Vaccine 12+ 07/29/2021,12/28/19 21,11/29/2020 Moderna Covid-19 Vaccine 6+ Bivalent 04/08/2023, 08/04/2022 Pfizer Covid-19 Vaccine 12+ 07/12/2024 Pneumococcal Conjugate PCV 13 06/23/2017 Pneumococcal Polysaccharide PPSV23 10/19/2019, RSV Bivalent 05/25/2024 TD (adult), 2 Lf tetanus tox oid, preservative free, adsorbed 08/16/2003 Tdap 05/14/2023 Zoster, Recombinant 10/02/2019,07/03/2019 Zoster, live 10/23/2016 Family History Medical History Relation Name Comments Diabetes Mother Relation Name Status Comments Mother Social History Tobacco Use Types Packs/Day Years Used Date Smoking Tobacco: Never Passive Smoke Exposure: Never Smokeless Tobacco: Never Tobacco Cessation:Counseling Given: Not Answered Alcohol Use Standard Drinks/Week Comments Never 0 [...] Orientation Straight 06/08/2022 10 :14 AM EDT Last Filed Vital Signs Vital Sign Reading Time Taken Comments Blood Pressure 136/64 12/07/2024 2:48 PM EDT Pulse 54 12/07/2024 2:48 PM EDT Temperature 36.7 ??C (98.1 ??F) 12/07/2024 2:48 PM ED T Respiratory Rate 16 12/07/2024 2:48 PM EDT Oxygen Saturation 98% 12/07/2024 2:48 PM EDT Inhaled Oxygen Concentration - - Weight 82.6 kg (182 lb) 12/07/2024 2:48 PM EDT Height 162.6 cm (5' 4 ) 12/07/2024 2:48 PM EDT Body Mass Index 31.24 12/07/2024 2:48 PM EDT Plan of Treatment Upcoming Encounters Date Type Department Care Team (Late st Contact Info) Description 12/14/2024 11:30 AM EDT Office Visit [facility] [address] [place] [address] Pao Hernandez MD [address] [place] [address] 12/21/2024 2:00 PM EDT Clinical Support [facility] [address] [place] [address] Jerri Jeffries, JASSON [address] [place] [address] Health Maintenance Due Date Last Done Comments CT Colonography 1951 FIT DNA/Cologuard 1950 FIT 1950 FOBT 1950 Sigmoidoscopy 1950 Alcohol/Substance Use Screening 05/25/2025 05/25/2024 Depression Screening 05/25/2025 05/25/2024, 05/25/20 Tobacco Screening 11/09/2025 11/09/2024 SDOH Screening 12/07/2025 12/07/2024 Lipid Panel 11/29/2028 11/30/2023, 05/21/2020 Colonoscopy 01/17/2029 01/17/2019 Colorectal Cancer Screening 01/17/2029 DTaP/Tdap/Td Vaccines (2 - Td or Tdap) 05/14/2033 05/14/2023, 08/16/2003 Zoster Vaccines Completed 10/02/2019, 06/10, 10/23/2016 Pneumococcal Vaccine: 50+ Years Completed 10/19/2019, 06/23/2017, 09/19/2010 Hepatitis C Screening Completed 12/30/2023 Influenza Vaccine Completed 04/24/2024, , 05/08/2021, Additional history exists RSV Patients and Patients Aged 60 years or older Completed 05/25/2024 COVID-19 Vaccine Completed 07/12/2024, , 08/04/2022, Additional history exists HIB Vaccines Aged Out No longer eligi [...] patient's age to complete this topic Meningococcal Vaccine Aged Out No jaspreet brooke eligible based on patient's age to complete this topic RSV under 20 months Aged Out No longe r eligible based on patient's age to complete this topic Rotavirus Vaccines Aged Out No longer eligible based on patient's age to complete this topic Procedures Procedure Name Priority Date/Time Associated Diagnosis Comments POCT KAREN-14 URINE DRUG SCREEN Routine 10/26/2024 2:06 PM EDT Long-term current use of opiate analgesic Chronic left shoulder pain HEPATITIS PANEL, GENERAL Routine 12/30/2023 9:29 AM EDT Transaminitis LIPID PANEL, STANDARD Routine 11/30/2023 8:34 AM EDT Hyperlipidemia, unspecified hyperlipidemia type HM COLONOSCOPY Routine 01/17/2019 from Last 3 Months or Most Recently Relevant to Health Maintenance Results * POCT KAREN-14 Urine Drug Screen (10/26/2024 2:06 PM EDT) Oxycodone Screen, Urine Positive Urine Urine specimen obtained by clean catch procedure / Unknown 10/26/2024 2:06 PM EDT Narrative Jerri Jeffries RN - 10/26/2024 2:06 PM EDT Lot# [id number] Exp: 03-28-26 Pao Hernandez MD POINT OF CARE TEST ENTER/EDIT ORDERABLES Final Result * Hepatitis A,B,C Profile (12/30/2023 9:29 AM EDT) Pathologist [facility] Hepatitis A IgM Nonreactive Nonreactive [facility] Comment:IgM antibodies to CHAPA V not detected; does not exclude earlyacute or recovered HAV infection. ~Hepatitis B Surface Antibody NONREACTIVE Nonreactive [facility] Comment:Nonreactive: < 8.00 mIU/mL Hepatitis B Core Antibody Nonreactive Nonreactive [facility] Hepatitis C Antibody Nonreactive Nonreactive [facility] Comment:Antibodies to HCV no t detected; does not exclude early acuteHCV infection. Hepatitis B Surface Ag Negative Negative [facility] Blood Venous blood specimen / Unknown 12/30/2023 9:29 AM EDT 12/30/2023 2:20 PM EDT Pao Hernandez MD LAB BLOOD ORDERABLES Final Re sult [facility] [address] [place] [address] [phone] * (ABNORMAL) Lipid Panel, Standard (11/30/2023 8:34 AM EDT) Triglycerides 80 <150 mg/dL [facility] Comment:Desirable Triglyceri de: less than 150 mg/dLBorderline High Triglyceride 150-199 mg/dLHigh Triglyceride: 200-499 mg/dLVery High Triglyceride: greater than or equal to 5OO mg/dL Cholesterol 169 <200 mg/dL [facility] Comment:Desirable Cholestero l: less than 200 mg/dLBorderline High Cholesterol: 200-239 mg/dLHigh Cholesterol: greater than 239 mg/dL LDL Cholesterol Calculated 102(H) <100 mg/dL [facility] Comment:Desirable LDL: less than 100 mg/dLNear Optimal/Above Optimal LDL: 110- 129 mg/dLBorderline High LDL: 130-159 mg/dLHigh LDL: 160-189 mg/dLVery High LDL: greater than or equal to 190 mg/dL HDL Cholesterol 51 >40 mg/dL [facility] Comment:Desirable HDL: great er than 40 mg/dL Note: This HDL assay may give artificially low results in patients with liver disease. Blood Venous blood specimen / Unknown 11/30/2023 8:34 AM EDT 11/30/2023 2:17 PM EDT Pao Hernandez MD LAB BLOOD ORDERABLES Final Re sult Performing Organization Address City/State/[facility] Co de Phone Number [facility] [address] [place] [phone] * Colonoscopy (01/17/2019) Colonoscopy Normal Normal Historical Provider HEALTH MAINTENANCE Final Result from Last 3 Months or Most Recently Relevant to Health Maintenance Insurance [facility] [employer] (HMO D-SNP) [place]LO [place]ICE [id number] Care Teams [employer] Sprayer Relationship Specialty Start Date End Date Pao Hernandez MD [address] [place] [phone] PCP - General Family Medicine 06/21/20
--- OUTSIDE RECORDS SUMMARY | 2024-12-07 17:28 | XMS_ITS | Encounter Summary ---
Author Organization [employer] Address [address] [place] [address] Care Team Providers Care Captain/Check Airman Name Role Phone Pao Hernandez MD Primary Care Provider [phone] Encounter Details Date Type Department Care Team (Latest Contact Info) Description 12/07/2024 Travel Social History Tobacco Use Types Packs/Day Years [...] your housing situation today? I have cy renetta 12/07/[address] you li [...] 12/14/2024 11:30 AM EDT Office Visit [facility] [address] [place] [address] Pao Hernandez MD [address] [place] [address] 12/21/2024 2:00 PM EDT Clinical Support [facility] [address] [place] [address] Jerri Jeffries, JASSON [address] [place] [address] documented as of this encounter Visit Diagnoses Not on filedocumented in this encounter Additional Health Concerns Assessment Noted Time PHQ-9 Depression Total Score: 0 05/25/20 24 10:08 AM EDT documented as of this encounter Care Teams Captain/Check Airman Relationship Specialty Start Date End Date Pao Hernandez MD [address] [place] [address] PCP - General Family Medicine 06/21/20 documented as of this encounter
--- OUTSIDE RECORDS SUMMARY | 2024-12-07 17:28 | XMS_ITS | Encounter Summary ---
Author Organization [employer] [facility] Address [address] [facility] [address] [place] [address] Care Team Providers Care Mother Helper Name Role Phone Pao Hernandez MD Primary Care Provider [phone] Reason for Visit * Reason Comments Med Refill Encounter Details Date Type Department Care Team ([facility] Contact Info) Description 01/03/2023 Refill [facility] [address] [place] [address] Pao Hernandez MD [address] [place] [address] Gastroesophageal reflux disease, unspecified whether esophagitis present Social History Tobacco Use Types Packs/Day Years [...] suspected to have Coronavirus/COVID-19? No / Unsure 12/25/2022 1:34 PM EDT documented as of this encounter Plan of Treatment Upcoming Encounters Date Type Department Care Team ([facility] Contact Info) Description 12/14/2024 11:30 AM EDT Office Visit [facility] [address] [place] [address] Pao Hernandez MD [address] [place] [address] 12/21/2024 2:00 PM EDT Clinical Support [facility] [address] [place] [address] Jerri Jeffries, JASSON [address] [place] [address] documented as of this encounter Visit Diagnoses Diagnosis Gastroesophageal reflux disease, unspecified whether esophagitis present documented in this encounter Additional Health Concerns Assessment Noted Time PHQ-9 Depression Total Score: 2 11/06/19 23 11:13 AM EDT documented as of this encounter Care Teams Mother Helper Relationship Specialty Start Date End Date Pao Hernandez MD [address] [place] [phone] PCP - General Family Medicine 06/21/20 documented as of this encounter
--- OUTSIDE RECORDS SUMMARY | 2024-12-07 17:28 | XMS_ITS | Encounter Summary ---
Author Organization [employer] [facility] Address [address] [facility] [address] [place] [address] Care Team Providers Care Crook Operator Name Role Phone Pao Hernandez MD Primary Care Provider [phone] Reason for Visit * Reason Onset Date Comments Med Refill 05/06/2023 Encounter Details Date Type Department Care Team ([facility] st Contact Info) Description 05/06/2023 Telephone [facility] [address] [place] [address] Pao Hernandez MD [address] [place] [address] Med Refill Social History Tobacco Use Types Packs/Day Years [...] encounter Miscellaneous Notes * Telephone Encounter - Maria Victoria Rendon - 05/06/2023 10:40 AM EDT TC from pt requesting a med refill on medication oxyCODONE-acetaminophen (Percocet) 5-[address] Hernandez documented in this encounter Plan of Treatment Upcoming Encounters Date Type Department Care Team (Late st Contact Info) Description 12/14/2024 11:30 AM EDT Office Visit [facility] [address] [place] [address] Pao Hernandez MD [address] [place] [address] 12/21/2024 2:00 PM EDT Clinical Support [facility] [address] [place] [address] Jerri Jeffries, JASSON [address] [place] [address] documented as of this encounter Visit Diagnoses Not on filedocumented in this encounter Additional Health Concerns Assessment Noted Time PHQ-9 Depression Total Score: 2 11/06/19 23 11:13 AM EDT documented as of this encounter Care Teams Crook Operator Relationship Specialty Start Date End Date Pao Hernandez MD [address] [place] [address] PCP - General Family Medicine 06/21/20 documented as of this encounter
--- OUTSIDE RECORDS SUMMARY | 2024-12-07 17:28 | XMS_ITS | Encounter Summary ---
Author Organization [employer] [facility] Address [address] [facility] 7t [place] [address] Care Team Providers Care College Recruiter Name Role Phone Pao Hernandez MD Primary Care Provider [phone] Reason for Visit * Reason Comments Med Refill Encounter Details Date Type Department Care Team (Late st Contact Info) Description 09/07/2022 Refill [facility] MED & PEDS [address] [place] [address] Pao Hernandez MD 505 [place] [address] Essential hypertension (Primary Dx) Social History Tobacco Use Types Packs/Day Years [...] suspected to have Coronavirus/COVID-19? No / Unsure 08/27/2022 2:02 PM EST documented as of this encounter Plan of Treatment Upcoming Encounters Date Type Department Care Team (Late st Contact Info) Description 12/14/2024 11:30 AM EDT Office Visit [facility] MED & PEDS 505 [place] [address] Pao Hernandez MD 505 [place] [address] 12/21/2024 2:00 PM EDT Clinical Support [facility] MED & PEDS [address] [place] [address] Jerri Jeffries, RN 505 [place] [address] documented as of this encounter Visit Diagnoses Diagnosis Essential hypertension- Primary Unspecified essential hypertension documented in this encounter Care Teams College Recruiter Relationship Specialty Start Date End Date Pao Hernandez MD [address] [place] [id number] PCP - General Family Medicine 06/21/20 documented as of this encounter
--- OUTSIDE RECORDS SUMMARY | 2024-12-07 17:28 | XMS_ITS | Encounter Summary ---
Author Organization [employer] Address [address] [facility] 7t [place] [address] Care Team Providers Care Rn Chronic Name Role Phone Pao Hernandez MD Primary Care Provider [phone] Encounter Details Date Type Department Care Team ([facility] st Contact Info) Description 12/07/2024 3:20 PM EDT Office [address] [facility] MED & PEDS [address] [place], [place] [phone] Zoe Garvin MD 505 [place] [address] Localized edema (Primary Dx); Essential hypertension; Coronary artery disease involving [place] coronary artery of [place] heart without angina pectoris Social History Tobacco Use Types Packs/Day Years [...] AM EDT documented as of this encounter Last Filed Vital Signs Vital Sign Reading [...] Mass Index 31.24 12/07/2024 2:48 PM EDT documented in this encounter Progress Notes * Zoe Garvin MD - 12/07/2024 3:20 PM EDT Subjective Patient ID: Luis Antonio Vaughn is a 74 y.o. male who presents for bilateral leg edema x 3 days. Luis Antonio is a 74-year-old male patient of Dr. Hernandez with history of CAD and hypertension here with 3days history of bilateral lower extremity pitting edema. No recent travel no chest pain no orthopnea. Has cardiology appointment on December 26 and PCP appointment in 1 week or so. Has been elevating legswith minor improvement. Denies eating out more than usual or eating with more salt than usual. Takes all meds with good compliance as his medications are in the med box. Denies chest pain or any cardiac symptoms. Edema Presents with new edema. The current episode started less than one week ago. The onset of the episode was sudden. These episodes happen throughout the day. The problem has been gradually worsening. The edema is present on the both side(s). Associated agents include calcium channel blockers. Pertinent negative symptoms include no abdominal pain, no abdominal swelling, no chest pain, no cough, no decreased urine volume, no fatigue, no fever, no hemoptysis, no nausea, no nocturia, no orthopnea, no palpitations, no PND, no presyncope, no syncope and no weight change. Past medical history is significant for CAD. Pertinent negative history includes no chronic renal disease, no cirrhosis, no hepatitis, no liver disease, no recent surgery and no varicose veins. Treatments tried include elevating limb(s). There has been none improvement on treatment(s). Review of Systems Constitutional: Negative for fatigue and fever. Respiratory: Negative for cough and hemoptysis. Cardiovascular: Negative for chest pain, palpitations, syncope and PND. Gastrointestinal: Negative for abdominal pain and nausea. Genitourinary: Negative for decreased urine volume and nocturia. Objective BP 136/64 (BP Location: Left arm, Patient Position: Sitting, BP Cuff Size: Large adult) Pulse 54 Temp 98.1 ??F (36.7 ??C) (Oral) Resp 16 Ht 5' 4 (1.626 m) Wt 182 lb (82.6 kg) SpO2 98% BMI 31.24 kg/m?? Physical Exam Vitals reviewed. Constitutional: Appearance: He is obese. He is not ill-appearing. HENT: Head: Normocephalic. Mouth/Throat: Mouth: Mucous membranes are moist. Eyes: Pupils: Pupils are equal, round, and reactive to light. Cardiovascular: Rate and Rhythm: Normal rate and regular rhythm. Heart sounds: Normal heart sounds. No murmur heard. Pulmonary: Effort: No respiratory distress. Breath sounds: Normal breath sounds. No wheezing. Abdominal: General: There is distension. Palpations: Abdomen is soft. Musculoskeletal: General: Swelling present. Right lower leg: Edema present. Left lower leg: Edema present. Skin: Findings: No rash. Neurological: Mental Status: He is oriented to person, place, and time. Psychiatric: Mood and Affect: Mood normal. Behavior: Behavior normal. Thought Content: Thought content normal. Judgment: Judgment normal. Assessment/Plan Diagnoses and all orders for this visit: Localized edema Comments: Check UA, microalbumin level and BMP today. Furosemide 40 mg daily x 1 week given follow-up. As planned with PCP and cardio. Keep elevating legs when home. DC [place]ill[place] seasoning as much as possible and take outs. Orders: - Albumin, Random Urine W/Creatinine; Future - Basic Metabolic Panel; Future - Urinalysis with reflex microscopic; Future Essential hypertension Comments: BP well-controlled on current meds. Edema could be from amlodipine but may need annual echocardiogram done to rule out worsening CHF. Coronary artery disease involving [place] coronary artery of [place] heart without angina pectoris Other orders - furosemide (Lasix) 40 MG tablet; Take 1 tablet (40 mg) by mouth Once per day for 7 days. documented in this encounter Plan of Treatment Upcoming Encounters Date Type Department Care Team ([facility] st Contact Info) Description 12/14/2024 11:30 AM EDT Office Visit [facility] MED & PEDS [address] [place] [address] Pao Hernandez MD 505 [place] [address] 12/21/2024 2:00 PM EDT Clinical Support [facility] MED & PEDS [address] [place] [address] Jerri Jeffries RN 505 [place] [address] Scheduled Orders Name Type Priority Associated Diagnoses Orde r Schedule Albumin, Random Urine W/Creatinine Lab Routine Localized edema Expected: 12/07/2024 (Approximate), Expires: 12/07/2025 Basic Metabolic Panel Lab Routine Localized edema Expected: 12/07/2024 (Approximate), Expires: 12/07/2025 Urinalysis with reflex microscopic Lab Routine Localized edema Expected: 12/07/2024, Expires: 12/07/2025 documented as of this encounter Visit Diagnoses Diagnosis Localized edema- Primary Edema Essential hypertension Unspecified essential hypertension Coronary artery disease involving [place] coronary artery of [place] heart without angina pectoris documented in this encounter Additional Health Concerns Assessment Noted Time PHQ-9 Depression Total Score: 0 05/25/20 24 10:08 AM EDT documented as of this encounter Care Teams Rn Chronic Relationship Specialty Start Date End Date Pao Hernandez MD [address] [place] [address] PCP - General Family Medicine 06/21/20 documented as of this encounter
[2024-12-07 17:41] LABS: Appearance Urine Clear; Color Urine Yellow; Glucose Urine UA Negative (Negative); Leukocyte Esterase Urine Negative (Negative); Nitrite Urine Negative (Negative); PH 6.5 (5.0-9.0); Urine Blood Negative (Negative); Urine Ketones Negative (Negative); Urine Protein Negative (Neg-Trace)
[2024-12-07 18:03] LABS: Anion Gap 14 (12-20); Blood Urea Nitrogen 13 mg/dL (9-16); Calcium 9.5 mg/dL (8.4-10.2); Carbon Dioxide 29 mmol/L (22-29); Chloride 104 mmol/L (96-108); Estimated Glomerular Filt Rate > 60; Glucose Random 105 mg/dL (60-115); Potassium 4.4 mmol/L (3.3-5.1); Sodium 143 mmol/L (135-145)
[2024-12-07 18:11] LABS: Creatinine Urine 62.43 mg/dL; Microalbum/Creatinine Ratio Ur 22.4 ug/mg cr (<30)
== END 2024-12-07 15:57 | disposition home or self-care (01) ==
LOC: HO.CHCLDS 15:56
PROVIDERS: Visit Provider Pediatrics
DX: R60.0 Localized edema (principal)
CPT/HCPCS: 36415; 80048; 81003; 82043; 82570

== ENCOUNTER 2025-05-22 10:42 | Outpatient (REF) | payer OTHER, SELFPAY ==
--- OUTSIDE RECORDS SUMMARY | 2025-05-22 09:30 | XMS_ITS | Encounter Summary ---
Author Organization [employer] Address [address] [facility] 7 [place] [address] Care Team Providers Care Fish Inspector Name Role Phone Pao Hernandez MD Primary Care Provider Reason for Visit * Reason Comments annual wellness exam Encounter Details Date Type Department Care Team ([facility] Contact Info) Description 05/22/2025 9:30 AM EDT Office Visit [facility] MED & PEDS [address] [place], [place] [phone] Rula Benavides MD [address] [place] [address] Encounter for immunization (Primary Dx); Essential hypertension; Generalized osteoarthritis; Pure hypercholesterolemia; Spinal stenosis of lumbar region, unspecified whether neurogenic claudication present Social History Tobacco Use Types Packs/Day [...] Date Recorded Patient Health Questionnaire-9 Score 0 04/16/2025 Patient Health Questionnaire-9 Score 0 04/16/2025 Last PHQ-9: Questionnaire Data Not on file 0 04/16/2025 Housing Stability Answer Date Recorded What is [...] Date Recorded Patient Health Questionnaire-2 Score 0 04/16/2025 Internet Access Answer Date Recorded Internet Access [...] Sign Reading Time Taken Comments Blood Pressure 150/75 05/22/2025 9:44 AM EDT Pulse 82 05/22/2025 9:44 AM EDT Temperature - - Respiratory Rate 20 05/22/2025 9:44 AM EDT Oxygen Saturation 99% 05/22/2025 9:44 AM EDT Inhaled Oxygen Concentration - - Weight 83.9 kg (185 lb) 05/22/2025 9:44 AM EDT Height 162.6 cm (5' 4 ) 05/22/2025 9:44 AM EDT Body Mass Index 31.76 05/22/2025 9:44 AM EDT documented in this encounter Progress Notes * Rula Benavides MD - 05/22/2025 9:30 AM EDT SUBJECTIVE Luis Antonio Vaughn is a 74 y.o. male who presents for annual wellness exam. HPI Mr Luis Antonio Vaughn needs his annual exam because he is going to start going to [facility] ( Adult foster care) . Pt is able to care for himself: grooming, Eating. Still cooks at home. Able to do his laundry by himself. Has Generalized OA and is on COT. His knee pain and ankle pain is exacerbated by walking. Problem List[1] Allergies[2] Medications Ordered Prior to Encounter[3] Review of Systems Constitutional: Negative for appetite change, chills, diaphoresis and fatigue. HENT: Negative for congestion, dental problem, drooling and ear discharge. Respiratory: Negative for cough, choking, shortness of breath and stridor. Cardiovascular: Negative for leg swelling. Gastrointestinal: Negative for anal bleeding, blood in stool, constipation and diarrhea. Genitourinary: Negative for flank pain, frequency and genital sores. Musculoskeletal: Positive for arthralgias. Skin: Negative for rash and wound. OBJECTIVE Vitals: 05/22/25 0944 BP: (!) 150/75 BP Location: Left arm Patient Position: Sitting BP Cuff Size: Adult Pulse: 82 Resp: 20 SpO2: 99% Weight: 185 lb (83.9 kg) Height: 5' 4 (1.626 m) Physical Exam Constitutional: General: He is not in acute distress. Appearance: Normal appearance. He is obese. He is not ill-appearing, toxic- appearing or diaphoretic. Cardiovascular: Rate and Rhythm: Normal rate. Pulmonary: Effort: Pulmonary effort is normal. Abdominal: Palpations: Abdomen is soft. Skin: General: Skin is warm. Neurological: General: No focal deficit present. Mental Status: He is alert. Psychiatric: Mood and Affect: Mood normal. Assessment/Plan Assessment/Plan Diagnoses and all orders for this visit: Encounter for immunization - COVID-19 VACCINE [id number] (Comirnaty) 12 yrs to 18 yrs - FLU VACCINE TRIVALENT HIGH DOSE [id number] (Fluzone) 65 yrs + Essential hypertension Comments: Elevated BP Pt is to be compliant to his diet and meds and to follow up w/ PCP in 1 month to evaluate if he needs some adjustment to his regimen. Orders: - T-SPOT??.TB; Future Generalized osteoarthritis Comments: Continue w/ the COT Keep as active as tolerated. Orders: - T-SPOT??.TB; Future Pure hypercholesterolemia Comments: Pt has some standing labs pending. No change made to the current management Low chol diet recommended. Spinal stenosis of lumbar region, unspecified whether neurogenic claudication present Comments: COT as noted above. NO identified contraindication to pt attending the day program. No identified communicable disease during the evaluation today. [1] Patient Active Problem List Diagnosis Coronary artery disease involving [place] coronary artery of [place] heart without angina pectoris Benign prostatic hyperplasia without urinary obstruction Chronic back pain Contracture of palmar fascia Lumbosacral spondylosis without myelopathy Diverticular disease of colon Essential hypertension Gastroesophageal reflux disease Generalized osteoarthritis Gout Hyperlipidemia Hypertrophy of bladder Lumbago-sciatica due to displacement of lumbar intervertebral disc Other and unspecified angina pectoris Peripheral vascular disease (CMS/HCC) Pure hypercholesterolemia Spinal stenosis of lumbar region Vitamin D deficiency Thyrotoxicosis Cobalamin deficiency Degeneration of lumbosacral intervertebral disc Chronic left shoulder pain Ventral hernia without obstruction or gangrene Chronic right shoulder pain Back problem Arthritis of both knees Dietary counseling Right ankle pain Right foot pain Long-term current use of opiate analgesic Bilateral lower extremity edema [2] No Known Allergies [3] Current Outpatient Medications on File Prior to Visit Medication Sig Dispense Refill allopurinol (Zyloprim) 100 MG tablet TAKE ONE TABLET EVERY DAY 90 tablet 1 amLODIPine (Norvasc) 10 MG tablet TAKE 1 TABLET BY MOUTH EVERY DAY 90 tablet 1 aspirin 81 MG chewable tablet Chew 1 tablet 1 (one) time each day. Aspirin Low Dose 81 MG EC tablet Take 1 tablet by mouth Once per day. atorvastatin (Lipitor) 40 MG tablet TAKE 1 TABLET BY MOUTH DAILY AT BEDTIME 90 tablet 0 Blood Pressure kit 1 Units in the morning. 1 kit 0 cholecalciferol (Vitamin D-3) 50 MCG (2000 UT) capsule Take 1 capsule by mouth 1 (one) time each day. Cyanocobalamin (Vitamin B-12 ER) 1000 MCG tablet controlled-release TAKE 1 TABLET BY MOUTH EVERY DAY 90 tablet 4 diclofenac (Cataflam) 50 MG tablet TAKE ONE TABLET THREE TIMES DAILY IN THE MORNING, AT NOON, AND AT BEDTIME FOR PAIN 90 tablet 0 furosemide (Lasix) 40 MG tablet Take 1 tablet (40 mg) by mouth Once per day. 10 tablet 0 hydrALAZINE (Apresoline) 10 MG tablet TAKE 1 TABLET(10 MG) BY MOUTH TWICE DAILY 60 tablet 5 ketorolac (Acular) 0.5 % ophthalmic solution Ketotifen Fumarate 0.035 % solution Administer 1 drop into affected eye(s) if needed in the morningand at bedtime (eye itchiness). 10 mL 2 lisinopril 40 MG tablet Take 1 tablet (40 mg) by mouth Once per day. 90 tablet 1 metoprolol succinate XL (Toprol-XL) 25 MG 24 hr tablet Take 1 tablet (25 mg) by mouth Once per day.90 tablet 1 naloxone (Narcan) 4 mg/0.1 mL nasal spray Administer 1 spray (4 mg) into affected nostril(s) if needed for opioid reversal. 2 each 0 nitroglycerin (Nitrostat) 0.[address] 1 tablet (0.4 mg) under the tongue every 5 (five) minutes if needed for chest pain. 5 tablet 0 oxyCODONE-acetaminophen (Percocet) 5-325 MG tablet TAKE ONE TABLET EVERY 6 HOURS NEEDED FOR SEVERE PAIN 112 tablet 0 pantoprazole (ProtoNix) 20 MG EC tablet TAKE 1 TABLET BY MOUTH DAILY 90 tablet 1 tadalafil (Cialis) 20 MG tablet Take 1 tablet (20 mg) by mouth if needed each day for erectile dysfunction. 10 tablet 2 No current facility-administered medications on file prior to visit. documented in this encounter Plan of Treatment Upcoming Encounters Date Type Department Care Team (Late st Contact Info) Description 06/26/2025 9:30 AM EST Clinical Support [facility] MED & PEDS [address] [place] [address] Jerri Jeffries, RN 505 [place] [address] Scheduled Orders Name Type Priority Associated Diagnoses Orde r Schedule T-SPOT .TB Lab Routine Essential hypertension Generalized osteoarthritis Expected: 05/22/2025 (Approximate), Expires: 05/22/2026 documented as of this encounter Visit Diagnoses Diagnosis Encounter for immunization- Primary Essential hypertension Unspecified essential hypertension Generalized osteoarthritis Generalized osteoarthrosis, involving multiple sites Pure hypercholesterolemia Spinal stenosis of lumbar region, unspecified whether neurogenic claudication present documented in this encounter Additional Health Concerns Assessment Noted Time PHQ-9 Depression Total Score: 0 04/16/20 25 9:46 AM EDT documented as of this encounter Care Teams Fish Inspector Relationship Specialty Start Date End Date Pao Hernandez MD [address] [place] [address] PCP - General Family Medicine 06/21/20 Jad Jama MD [address] [address] Consulting Physician Gastroenterology 12/14/24 Mendel Hughes DO Consulting Physician Cardiology 12/14/24 documented as of this encounter
--- OUTSIDE RECORDS SUMMARY | 2025-05-22 12:41 | XMS_ITS | Encounter Summary ---
Author Organization [employer] Address [address] [facility] 7t [place] [address] Care Team Providers Care Mortgage Coordinator Name Role Phone Pao Hernandez MD Primary Care Provider Encounter Details Date Type Department Care Team (Latest Contact Info) Description 05/22/2025 Travel Social History Tobacco Use Types Packs/Day [...] Description 06/26/2025 9:30 AM EST Clinical Support [facility] MED & PEDS [address] [place] [address] Jerri Jeffries, JASSON 505 [place] [address] documented as of this encounter Visit Diagnoses Not on filedocumented in this encounter Additional Health Concerns Assessment Noted Time PHQ-9 Depression Total Score: 0 04/16/20 25 9:46 AM EDT documented as of this encounter Care Teams Mortgage Coordinator Relationship Specialty Start Date End Date Pao Hernandez MD [address] [place] [address] PCP - General Family Medicine 06/21/20 Jad Jama MD [address] [address] Consulting Physician Gastroenterology 12/14/24 Mendel Hughes DO Consulting Physician Cardiology 12/14/24 documented as of this encounter
--- OUTSIDE RECORDS SUMMARY | 2025-05-22 12:41 | XMS_ITS | Encounter Summary ---
Author Organization [employer] Address [address] [facility] 7t [place] [address] Care Team Providers Care Television Antenna Installer Name Role Phone Pao Hernandez MD Primary Care Provider [phone] Reason for Visit * Reason Comments Med Refill Encounter Details Date Type Department Care Team ([facility] st Contact Info) Description 08/25/2024 Refill [facility] MED & PEDS [address] [place], [place] [phone] Pao Hernandez MD 505 [place], [place] [phone] Lumbosacral spondylosis without myelopathy Social History Tobacco [...] Description 06/26/2025 9:30 AM EST Clinical Support [facility] MED & PEDS [address] [place] [address] Jerri Jeffries, RN 505 [place] [address] documented as of this encounter Visit Diagnoses Diagnosis Lumbosacral spondylosis without myelopathy documented in this encounter Additional Health Concerns Assessment Noted Time PHQ-9 Depression Total Score: 0 05/25/20 24 10:08 AM EDT documented as of this encounter Care Teams Television Antenna Installer Relationship Specialty Start Date End Date Pao Hernandez MD [address] [place] [address] PCP - General Family Medicine 06/21/20 Jad Jama MD [address] [facility] [address] [place] [address] Consulting Physician Gastroenterology 12/14/24 Mendel Hughes DO Consulting Physician Cardiology 12/14/24 documented as of this encounter
--- OUTSIDE RECORDS SUMMARY | 2025-05-22 12:41 | XMS_ITS | Encounter Summary ---
Author Organization [employer] Address [address] [facility] 7t [place] [address] Care Team Providers Care Commercial Airplane Pilot Name Role Phone Pao Hernandez MD Primary Care Provider [phone] Encounter Details Date Type Department Care Team (Latest Contact Info) Description 05/17/2025 Travel Social History Tobacco Use Types Packs/Day [...] Description 06/26/2025 9:30 AM EST Clinical Support [facility] MED & PEDS [address] [place] [address] Jerri Jeffries, JASSON [address] [place] [address] documented as of this encounter Visit Diagnoses Not on filedocumented in this encounter Additional Health Concerns Assessment Noted Time PHQ-9 Depression Total Score: 0 04/16/20 25 9:46 AM EDT documented as of this encounter Care Teams Commercial Airplane Pilot Relationship Specialty Start Date End Date Pao Hernandez MD [address] [place] [address] PCP - General Family Medicine 06/21/20 Jad Jama MD [address] [address] Consulting Physician Gastroenterology 12/14/24 Mendel Hughes DO Consulting Physician Cardiology 12/14/24 documented as of this encounter
--- OUTSIDE RECORDS SUMMARY | 2025-05-22 12:41 | XMS_ITS | Encounter Summary ---
Author Organization [employer] Address [address] [facility] 7t [place] [address] Care Team Providers Care Panel Saw Operator Name Role Phone Pao Hernandez MD Primary Care Provider [phone] Encounter Details Date Type Department Care Team (Late st Contact Info) Description 01/23/2025 Orders Only [facility] [address] [place] [address] Provider, MD Rachel Social History Tobacco Use Types Packs/Day Years [...] Upcoming Encounters Date Type Department Care Team ([facility] st Contact Info) Description 06/26/2025 9:30 AM EST Clinical Support [facility] MED & PEDS [address] [place] [address] Jerri Jeffries, JASSON [address] [place] [address] documented as of this encounter Procedures Procedure Name Priority Date/Time Associated Diagnosis Comments STRESS TEST, REGADENOSON WITH MYOCARDIAL PERFUSION SPECT (SINGLE STUDY) Routine 01/17/2025 4:18 PM EDT documented in this encounter Results * Regadenoson stress test with myocardial perfusion SPECT (single study) (01/17/2025 4:18 PM EDT) us Historical Provider CV STRESS PROCEDURES Tangela l Result documented in this encounter Visit Diagnoses Not on filedocumented in this encounter Additional Health Concerns Assessment Noted Time PHQ-9 Depression Total Score: 0 05/25/20 24 10:08 AM EDT documented as of this encounter Care Teams Panel Saw Operator Relationship Specialty Start Date End Date Pao Hernandez MD [address] [place] [address] PCP - General Family Medicine 06/21/20 Jad Jama MD [address] [address] Consulting Physician Gastroenterology 12/14/24 Mendel Hughes DO Consulting Physician Cardiology 12/14/24 documented as of this encounter
--- OUTSIDE RECORDS SUMMARY | 2025-05-22 12:41 | XMS_ITS | Clinical Summary ---
Author Organization [facility] [address] [facility] Address [address] [place] [address] Phone Care Team Providers Care Inside Wireman Name Role Phone Pao Hernandez MD Primary Care Provider [phone] Medications No known medications Social History Tobacco Use Types Packs/Day Years Used Date Smoking Tobacco: Never Assessed Sex and Gender Information Value Date Recorded Sex Assigned at Not on file Legal Sex Male 10:39 PM EST Gender Identity Not on file Sexual Orientation Not on file Plan of Treatment Health Maintenance Due Date Last Done Comments Colorectal Cancer Screening: Colonoscopy 1950 [place] Risk Assessment 07/12/2022 Hepatitis C Screening 07/12/2022 Social Influencers of Health Screening 07/12/2022 Depression Screening 08/09/2024 COVID-19 Vaccine ( season) 2025 07/12/2024, 04/08/2023, 08/04/2022, Additional history exists Influenza Vaccine (#1) 2025 , 05/14/2023, 05/08/2021, Additional history exists Hypertension/CHF/CAD Annual BMP Blood Test 12/07/2025 12/07/2024 Cholesterol Screening (Lipid Panel) 11/29/2028 11/30/2023 DTaP,Tdap,and Td Vaccines (3 - Td or Tdap) 05/14/2033 05/14/2023, 08/16/2003 Zoster Vaccines Completed 10/02/2019, 06/10, 10/23/2016 Pneumococcal Vaccine: 50+ Years Completed 10/19/2019, 06/23/2017, 09/19/2010 RSV Immunization Adult Patients Completed 05/25/2024 HIB Vaccines Aged Out No longer eligi [...] to complete this topic RSV Immunization Patients Under 20 months Aged Out No longer eligible based on patient's age to complete this topic Varicella Vaccines Aged Out No longer eligible based on patient's age to complete this topic Insurance Member Subscriber Plan / Payer (Ef fective 2023-Present) Name:LUIS ANTONIO WEISS Relation to Subscriber:Self Name:Luis Antonio Woods Payer ID:[id number] Group ID:[id number] Type:Not on file Address: [place] [address] [address] [id number] Care Teams Inside Wireman Relationship Specialty Start Date End Date Pao Hernandez MD [address] [place] [address] PCP - General Family Medicine 12/20/24
--- OUTSIDE RECORDS SUMMARY | 2025-05-22 12:41 | XMS_ITS | Encounter Summary ---
Author Organization [employer] Address [address] [facility] 7t [place] [address] Care Team Providers Care Natural Resource Specialist Name Role Phone Pao Hernandez MD Primary Care Provider Reason for Visit * Reason Comments Med Refill Encounter Details Date Type Department Care Team ([facility] st Contact Info) Description 11/13/2022 Refill [facility] CHC MED & PEDS [address] [place], [place] [phone] Pao Hernandez MD [address] [place], [place] [phone] Social History Tobacco Use Types Packs/Day Years [...] Description 06/26/2025 9:30 AM EST Clinical Support [facility] MED & PEDS [address] [place] [address] Jerri Jeffries, RN 505 [place] [address] documented as of this encounter Visit Diagnoses Not on filedocumented in this encounter Additional Health Concerns Assessment Noted Time PHQ-9 Depression Total Score: 2 11/06/19 23 11:13 AM EDT documented as of this encounter Care Teams Natural Resource Specialist Relationship Specialty Start Date End Date Pao Hernandez MD [address] [place] [address] PCP - General Family Medicine 06/21/20 Jad Jama MD [address] [address] Consulting Physician Gastroenterology 12/14/24 Mendel Hughes DO Consulting Physician Cardiology 12/14/24 documented as of this encounter
--- OUTSIDE RECORDS SUMMARY | 2025-05-22 12:41 | XMS_ITS | Encounter Summary ---
Author Organization [employer] Address [address] [facility] 7t [place] [address] Care Team Providers Care Hospital Unit Clerk Name Role Phone Pao Hernandez MD Primary Care Provider [phone] Reason for Visit * Reason Comments Med Refill Encounter Details Date Type Department Care Team (Late Contact Info) Description 09/07/2022 Refill [facility] MED & PEDS [address] [place] [address] Pao Hernandez MD 505 [place] [address] Essential hypertension (Primary Dx) Social History Tobacco [...] Description 06/26/2025 9:30 AM EST Clinical Support [facility] CHC MED & PEDS [address] [place] [address] Jerri Jeffries, JASSON 505 [place], [place] [phone] documented as of this encounter Visit Diagnoses Diagnosis Essential hypertension- Primary Unspecified essential hypertension documented in this encounter Care Teams Hospital Unit Clerk Relationship Specialty Start Date End Date Pao Hernandez MD 230 [place] [address] PCP - General Family Medicine 06/21/20 Jad Jama MD 229 [facility] [address] [place] [address] Consulting Physician Gastroenterology 12/14/24 Mendel Hughes DO Consulting Physician Cardiology 12/14/24 documented as of this encounter
--- OUTSIDE RECORDS SUMMARY | 2025-05-22 12:41 | XMS_ITS | Encounter Summary ---
Author Organization [employer] Address [address] [facility] 7t [place] [address] Care Team Providers Care Brokerage Purchase And Sale Clerk Name Role Phone Pao Hernandez MD Primary Care Provider [phone] Reason for Visit * Reason Onset Date Comments Chart Prep 05/21/2025 Encounter Details Date Type Department Care Team ([facility] st Contact Info) Description 05/21/2025 Telephone [facility] CHC MED & PEDS [address] [place], [place] [phone] Pao Hernandez MD 505 [place] [address] Chart Prep Social History Tobacco Use Types Packs/Day Years [...] encounter Miscellaneous Notes * Telephone Encounter - Brenda Post [place] - 05/21/2025 7:19 PM EDT Chart Prep Labs: not done Images: not done Referrals: appointment pending Vaccines due: Covid and Flu Screenings: not applicable Overdue care gaps: SBIRT and Tobacco documented in this encounter Plan of Treatment Upcoming Encounters Date Type Department Care Team ([facility] st Contact Info) Description 06/26/2025 9:30 AM EST Clinical Support [facility] MED & PEDS [address] [place] [address] Jerri Jeffries, JASSON 505 [place] [address] documented as of this encounter Visit Diagnoses Not on filedocumented in this encounter Additional Health Concerns Assessment Noted Time PHQ-9 Depression Total Score: 0 04/16/20 25 9:46 AM EDT documented as of this encounter Care Teams Brokerage Purchase And Sale Clerk Relationship Specialty Start Date End Date Pao Hernandez MD [address] [place] [address] PCP - General Family Medicine 06/21/20 Jad Jama MD [address] [address] Consulting Physician Gastroenterology 12/14/24 Mendel Hughes DO Consulting Physician Cardiology 12/14/24 documented as of this encounter
--- OUTSIDE RECORDS SUMMARY | 2025-05-22 12:41 | XMS_ITS | Encounter Summary ---
Author Organization [employer] Address [address] [facility] 7t [place] [address] Care Team Providers Care Sustainable Agriculture Faculty Name Role Phone Pao Hernandez MD Primary Care Provider [phone] Reason for Visit * Reason Comments Med Refill Encounter Details Date Type Department Care Team (Late st Contact Info) Description 01/03/2023 Refill [facility] MED & PEDS [address] [place], [place] [phone] Pao Hernandez MD 505 [place] [address] Gastroesophageal reflux disease, unspecified whether esophagitis present [...] Description 06/26/2025 9:30 AM EST Clinical Support [facility] MED & PEDS 505 [place] [address] Jerri Jeffries, RN 505 [place] [address] documented as of this encounter Visit Diagnoses Diagnosis Gastroesophageal reflux disease, unspecified whether esophagitis present documented in this encounter Additional Health Concerns Assessment Noted Time PHQ-9 Depression Total Score: 2 11/06/19 23 11:13 AM EDT documented as of this encounter Care Teams Sustainable Agriculture Faculty Relationship Specialty Start Date End Date Pao Hernandez MD 230 [place] [address] PCP - General Family Medicine 06/21/20 Jad Jama MD [address] [address] Consulting Physician Gastroenterology 12/14/24 Mendel Hughes DO Consulting Physician Cardiology 12/14/24 documented as of this encounter
--- OUTSIDE RECORDS SUMMARY | 2025-05-22 12:41 | XMS_ITS | Encounter Summary ---
Author Organization [employer] Address [address] [facility] [address] 7t [place] [address] Care Team Providers Care Picked Edge Sewing Machine Operator Name Role Phone Pao Hernandez MD Primary Care Provider [phone] Encounter Details Date Type Department Care Team ([facility] Contact Info) Description 09/28/2024 Telephone [facility] [address] [place], [place] [phone] aRmona Eubanks, OD [address] [place], [place] [phone] Social History Tobacco Use Types Packs/Day Years [...] PRICILLA GILES Address: [facility] [address] [place] [address] documented in this encounter Plan of Treatment Upcoming Encounters Date Type Department Care Team (Late st Contact Info) Description 06/26/2025 9:30 AM EST Clinical Support [facility] MED & PEDS [address] [place] [address] Jerri Jeffries, JASSON 505 [place] [address] documented as of this encounter Visit Diagnoses Not on filedocumented in this encounter Additional Health Concerns Assessment Noted Time PHQ-9 Depression Total Score: 0 05/25/20 10:08 AM EDT documented as of this encounter Care Teams Picked Edge Sewing Machine Operator Relationship Specialty Start Date End Date Pao Hernandez MD [address] [place] [address] PCP - General Family Medicine 06/21/20 Jad Jama MD [address] [address] Consulting Physician Gastroenterology 12/14/24 Mendel Hughes DO Consulting Physician Cardiology 12/14/24 documented as of this encounter
--- OUTSIDE RECORDS SUMMARY | 2025-05-22 12:41 | XMS_ITS | Encounter Summary ---
Author Organization [employer] Address 75 [facility] 7t [place] [address] Care Team Providers Care Table Games Manager Name Role Phone Pao Hernandez MD Primary Care Provider [phone] Reason for Visit * Reason Onset Date Comments Med Refill 05/06/2023 Encounter Details Date Type Department Care Team ([facility] st Contact Info) Description 05/06/2023 Telephone [facility] [address] [place] [address] Pao Hernandez MD 505 [place] [address] Med Refill Social History Tobacco Use Types [...] Description 06/26/2025 9:30 AM EST Clinical Support [facility] CHC MED & PEDS 505 [place] [address] Jerri Jeffries, RN 505 [place] [address] documented as of this encounter Visit Diagnoses Not on filedocumented in this encounter Additional Health Concerns Assessment Noted Time PHQ-9 Depression Total Score: 2 11/06/19 23 11:13 AM EDT documented as of this encounter Care Teams Table Games Manager Relationship Specialty Start Date End Date Pao Hernandez MD 230 [place] [address] PCP - General Family Medicine 06/21/20 Jad Jama MD 229 [facility] [address] [place] [address] Consulting Physician Gastroenterology 12/14/24 Mendel Hughes DO Consulting Physician Cardiology 12/14/24 documented as of this encounter
--- OUTSIDE RECORDS SUMMARY | 2025-05-22 12:41 | XMS_ITS | Encounter Summary ---
Author Organization [employer] Address [address] [facility] [address] 7[address] [place] [address] Care Team Providers Care Contract Engineer Name Role Phone Pao Hernandez MD Primary Care Provider [phone] Encounter Details Date Type Department Care Team ([facility] Contact Info) Description 09/28/2024 Telephone [facility] [address] [place], [place] [phone] Ramona Eubanks, OD [address] [place], [place] [phone] Social History Tobacco Use Types Packs/Day Years [...] PRICILLA GILES Address: [facility] [address] [place] [address] documented in this encounter Plan of Treatment Upcoming Encounters Date Type Department Care Team (Late st Contact Info) Description 06/26/2025 9:30 AM EST Clinical Support [facility] MED & PEDS 505 [place] [address] Jerri Jeffries, JASSON 505 [place] [address] documented as of this encounter Visit Diagnoses Not on filedocumented in this encounter Additional Health Concerns Assessment Noted Time PHQ-9 Depression Total Score: 0 05/25/20 10:08 AM EDT documented as of this encounter Care Teams Contract Engineer Relationship Specialty Start Date End Date Pao Hernandez MD 230 [place] [address] PCP - General Family Medicine 06/21/20 Jad Jama MD [address] [address] Consulting Physician Gastroenterology 12/14/24 Mendel Hughes DO Consulting Physician Cardiology 12/14/24 documented as of this encounter
--- OUTSIDE RECORDS SUMMARY | 2025-05-22 12:41 | XMS_ITS | Clinical Summary ---
Author Organization [employer] Address [address] [facility] [address] [place] [address] Care Team Providers Care Revising Clerk Name Role Phone Pao Hernandez MD Primary Care Provider [phone] Allergies No known active allergies Medications aspirin [...] FOR PAIN 90 tablet 01/18/20 24 Active lisinopril 40 MG tabletIndication s:Essential hypertension [...] chest pain. 5 tablet 04/24/20 24 Active tadalafil (Cialis) 20 MG tablet Take 1 tablet (20 mg) by mouth if needed each day for erectile dysfunction. 10 tablet 2 05/25/20 24 Active Ketotifen Fumarate 0.035 % solution Administer 1 drop into affected eye(s) if needed in the morning and at bedtime (eye itchiness). 10 mL 2 06/07/20 24 Active Aspirin Low Dose 81 MG EC tablet Take 1 tablet by mouth Once per day. 11/24/19 25 Active ketorolac (Acular) 0.5 % ophthalmic solution 11/11/19 25 Active furosemide (Lasix) 40 MG tablet Take 1 tablet (40 mg) by mouth Once per day. 10 tablet 12/15/19 25 Active amLODIPine (Norvasc) 10 MG tabletIndication s:Essential hypertension TAKE 1 TABLET BY MOUTH EVERY DAY 90 tablet 1 01/24/20 25 Active atorvastatin (Lipitor) 40 MG tablet TAKE 1 TABLET BY MOUTH DAILY AT BEDTIME 90 tablet 03/26/20 25 Active pantoprazole (ProtoNix) 20 MG EC tabletIndication s:Gastroesophage al reflux disease, unspecified whether esophagitis present TAKE 1 TABLET BY MOUTH DAILY 90 tablet 1 04/11/20 25 Active hydrALAZINE (Apresoline) 10 MG tablet TAKE 1 TABLET(10 MG) BY MOUTH TWICE DAILY 60 tablet 5 04/18/20 25 Active allopurinol (Zyloprim) 100 MG tabletIndication s:Gout, unspecified cause, unspecified chronicity, unspecified site TAKE ONE TABLET EVERY DAY 90 tablet 1 05/03/20 25 Active oxyCODONE-acetam inophen (Percocet) 5-325 MG tabletIndication s:Lumbosacral spondylosis without myelopathy TAKE ONE TABLET EVERY 6 HOURS NEEDED FOR SEVERE PAIN 112 tablet 05/09/20 25 Active allopurinol (Zyloprim) 100 MG tabletIndication s:Gout, unspecified cause, unspecified chronicity, unspecified site TAKE ONE TABLET EVERY DAY 90 tablet 1 11/07/19 25 025 Discontinued oxyCODONE-acetam inophen (Percocet) 5-325 MG tabletIndication s:Lumbosacral spondylosis without myelopathy TAKE ONE TABLET EVERY 6 HOURS NEEDED FOR SEVERE PAIN 112 tablet 04/12/20 25 025 Discontinued Active Problems Problem Noted Date Diagnosed Date Bilateral lower extremity edema 12/14/2024 Assessment & Plan (12/14/2024 12:39 PM EDT): Patient reports bilateral lower extremity edema extending to the knees. The edema may be multifactorial, potentially related to medication side effects (amlodipine) or underlying cardiac issues. Plan: - Continue current medication regimen for 10 days until cardiology appointment - Encourage patient to attend scheduled cardiology appointment on the Long-term current use of opiate analgesic 2024 Right foot pain 11/04/2023 Assessment & Plan (11/05/2023 10:19 AM EDT): Ddx plantar fasciitis, reports he will want to be sent to another [facility] radio operator. - Plan to refer him to another [facility] radio operator, Dr. Amador, for a second opinion and comprehensive evaluation. Also, recommend physical therapy at [facility] to address musculoskeletal components of his pain Right ankle pain 07/16/2023 Assessment & Plan (02/04/2024 7:32 AM EDT): Pt was advised to make an appointment with his Psych Nurse since his R ankle pain has become more severe. -Pt did not go see his Psych Nurse with the last referral -Pt denied injection to relieve pain Assessment & Plan (07/16/2023 1:54 PM EST): Patient that presented visit with complaints of R ankle pain will be referred to Podiatry. Back problem 05/14/2023 Arthritis of both knees 05/14/2023 Assessment & Plan (12/14/2024 12:39 PM EDT): - Order bilateral knee x-rays at [facility] - Referral to orthopedist for evaluation and management of knee pain - Consider potential hip involvement if knee x-rays are unremarkable Dietary counseling 05/14/2023 Chronic right shoulder pain 03/08/2023 Assessment & Plan (06/07/2024 11:44 AM EDT): Advised to contact insurance for PEDICURIST coverage. Administered steroid injection into right shoulder, [...] disc 07/20/2022 Coronary artery disease invo lving [place] coronary artery of [place] heart without angina pectoris 12/27/2018 Vitamin D [...] 01/27/2012 Essential hypertension 01/27/2012 Assessment & Plan (12/14/2024 12:40 PM EDT): Patient has slightly elevated systolic blood pressure, but diastolic pressure is within normal limits at 65 mmHg for an elder. Currently on amlodipine for blood pressure management, which may be contributing to lower extremity edema. Plan: - Continue current antihypertensive regimen - Monitor blood pressure at follow-up visits - Reassess medication regimen after cardiology evaluation Assessment & Plan (07/13/2024 1:59 PM EST): [...] of blurry vision will be referred to [facility]. Encounters Date Type Department Care Team Description 05/22/2025 9:30 AM EDT Office Visit [facility] [address] [place] [address] Rula Benavides MD Encounter for immunization (Primary Dx); Essential hypertension; Generalized osteoarthritis; Pure hypercholesterolemia; Spinal stenosis of lumbar region, unspecified whether neurogenic claudication present 05/22/2025 Travel 05/21/2025 Telephone [facility] [address] [place] [address] Pao Hernandez MD Chart Prep 05/17/2025 Telephone [facility] [address] [place] [address] Pao Hernandez MD 05/17/2025 Travel 05/07/2025 Refill [facility] [address] [place] [address] Pao Hernandez MD Lumbosacral spondylosis without myelopathy 05/02/2025 Refill [facility] [address] [place], [place] [phone] Rula Benavides MD Gout, unspecified cause, unspecified chronicity, unspecified site 04/17/2025 Refill [facility] [address] [place] [address] Pao Hernandez MD 04/16/2025 10:15 AM EDT Office Visit [facility] [address] [place] [address] Pao Hernandez MD Sleep apnea, unspecified type (Primary Dx); Essential hypertension 04/16/2025 Travel 04/11/2025 Refill [facility] [address] [place] [address] Pao Hernandez MD Lumbosacral spondylosis without myelopathy 04/10/2025 Refill [facility] [address] [place] [address] Pao Hernandez MD Gastroesophageal reflux disease, unspecified whether esophagitis present 04/06/2025 Patient Outreach [address] [address] Pao Hernandez MD Pre-visit Planning (SDOH screening completed on 12/07/24 ) 03/24/2025 Refill [facility] [address] [place] [address] Pao Hernandez MD 03/21/2025 Telephone [facility] [address] [place] [address] Pao Hernandez MD chart prep 03/20/2025 Patient Outreach [address] [address] Pao Hernandez MD Pre-visit Planning (SDOH screening completed on 12/07/24 ) 03/15/2025 Refill [facility] [address] [place] [address] Pao Hernandez MD Lumbosacral spondylosis without myelopathy 03/01/2025 10:30 AM EDT Clinical Support [facility] [address] [place] [address] Jerri Jeffries RN Chronic left shoulder pain 03/01/2025 Travel 02/23/2025 2:45 PM EDT Office Visit [facility] [address] [place] [address] Rula Benavides MD Pre-op evaluation (Primary Dx); Loud snoring 02/23/2025 Travel from Last 3 Months Immunizations Immunization Administration Dates Next Due Influenza High-dose Quadriva lent Preservative Free 05/14/2023,05/08/2021 Influenza Quadrivalent Adjuvanted 05/14/2020 Influenza injectable quadriv alent IIV4 with preservative 06/23/2017 Influenza injectable quadriv alent preservative free 05/03/2015 Influenza, High Dose Seasona l, Preservative Free 05/22/2025,04/24/2024,10/19/2019 Influenza, IIV3, injectable 05/01/2011 Influenza, Split (incl. carole fied surface antigen) 05/05/2013 Influenza, seasonal, injecta ble, preservative free 05/13/2016,05/29/2014 Moderna Covid-19 Vaccine 12+ 07/29/2021,12/28/19 21,11/29/2020 Moderna Covid-19 Vaccine 6+ Bivalent 04/08/2023, 08/04/2022 Pfizer Covid-19 Vaccine 12+ 05/22/2025, Pneumococcal Conjugate PCV 13 06/23/2017 Pneumococcal Polysaccharide [...] Pulse 82 05/22/2025 9:44 AM EDT Temperature 36.8 C (98.2 F) 04/16/2025 9:45 AM EDT Respiratory Rate 20 05/22/2025 9:44 AM EDT Oxygen Saturation 99% 05/22/2025 9:44 AM EDT Inhaled Oxygen Concentration - - Weight 83.9 kg (185 lb) 05/22/2025 9:44 AM EDT Height 162.6 cm (5' 4 ) 05/22/2025 9:44 AM EDT Body Mass Index 31.76 05/22/2025 9:44 AM EDT Plan of Treatment Upcoming Encounters Date Type Department Care Team ([facility] st Contact Info) Description 06/26/2025 9:30 AM EST Clinical Support [facility] [address] [place] [address] Jerri Jeffries, RN [address] [place] [address] Health Maintenance Due Date Last Done Comments CT Colonography 1951 FIT DNA/Cologuard 1950 FIT 1951 FOBT 1950 Sigmoidoscopy 1950 Alcohol/Substance Use Screening 05/25/2025 05/25/2024 SDOH Screening 12/07/2025 12/07/2024 Depression Screening 04/16/2026 04/16/2025, 04/16/20 25 Tobacco Screening 05/22/2026 05/22/2025 Lipid Panel 11/29/2028 11/30/2023, 05/21/2020 Colonoscopy 01/17/2029 01/17/2019 Colorectal Cancer Screening 01/17/2029 DTaP/Tdap/Td Vaccines (2 - Td or Tdap) 05/14/2033 05/14/2023, 08/16/2003 Zoster Vaccines Completed 10/02/2019, 06/10, 10/23/2016 Pneumococcal Vaccine: 50+ Years Completed 10/19/2019, 06/23/2017, 09/19/2010 Hepatitis C Screening Completed 12/30/2023 RSV Patients and Patients Aged 60 years or older Completed 05/25/2024 COVID-19 Vaccine Completed 05/22/2025, 11/2023, 04/08/2023, Additional history exists Influenza Vaccine Completed 05/22/2025, , 05/14/2023, Additional history exists HIB Vaccines Aged Out [...] Comments POCT KAREN-14 URINE DRUG SCREEN Routine 03/01/2025 10:05 AM EDT Chronic left shoulder pain ECG 12-LEAD Routine 02/23/2025 3:24 PM EDT Pre-op evaluation HEPATITIS PANEL, GENERAL Routine 12/30/2023 9:29 AM EDT Transaminitis LIPID PANEL, STANDARD Routine 11/30/2023 8:34 AM EDT Hyperlipidemia, unspecified hyperlipidemia type HM COLONOSCOPY Routine 01/17/2019 from Last 3 Months or Most Recently Relevant to Health Maintenance Results * (ABNORMAL) POCT KAREN-14 Urine Drug Screen (03/01/2025 10:05 AM EDT) THC Negative Negative Cocaine Screen, Urine Negative Negative Opiate Screen, Urine Negative Negative Methamphetamine Screen Urine Negative Negative Amphetamine Screen, Urine Negative Negative Benzodiazepines Screen, Urine Negative Negative Barbiturate Screen, Urine Negative Negative Methadone Screen, Urine Negative Negative Buprenophine Screen, Urine Negative Negative TCA, Urine Negative Negative MDMA Urine Negative Negative ng/mL Oxycodone Screen, Urine Positive(A) Negative Phencyclidine (PCP), Urine Negative Negative Propoxyphene, Urine Negative Negative Fentanyl, Urine Negative Negative Urine Urine specimen obtained by clean catch procedure / Unknown 03/01/2025 10:05 AM EDT Narrative Jerri Jeffries RN - 03/01/2025 10:05 AM EDT Internal Pass Control Lot# [id number] Exp: 06-08-26 Pao Hernandez MD POINT OF CARE TEST ENTER/EDIT ORDERABLES Final Result * ECG 12 lead (02/23/2025 3:24 PM EDT) Narrative Rula Benavides MD - 02/23/2025 3:24 PM EDT Normal sinus rhythm. HR: [address] elevation or ST depression. [place]: 81 degrees. No sign of LAE/JIMMY. No sign of hypertrophy. Q waves in II, III, AVF ( ? Old Inferior infarct) Rula Benavides MD ECG ORDERABLES Final Resul t * Hepatitis A,B,C Profile (12/30/2023 9:29 AM EDT) Hepatitis A IgM Nonreactive Nonreactive [facility] Comment:IgM antibodies to CHAPA V not detected; does not exclude earlyacute or recovered HAV infection. ~Hepatitis B Surface Antibody NONREACTIVE Nonreactive [facility] Comment:Nonreactive: < 8.00 mIU/mL Hepatitis B Core Antibody Nonreactive Nonreactive [facility] Hepatitis C Antibody Nonreactive Nonreactive [facility] Comment:Antibodies to HCV no t detected; does not exclude early acuteHCV infection. Hepatitis B Surface Ag Negative Negative [facility] Blood Venous blood specimen / Unknown 12/30/2023 9:29 AM EDT 12/30/2023 2:20 PM EDT Pao Hernandez MD LAB BLOOD ORDERABLES Final Re sult [facility] [address] [place] [address] [phone] * (ABNORMAL) Lipid Panel, Standard (11/30/2023 8:34 AM EDT) Triglycerides 80 <150 mg/dL [facility] Comment:Desirable Triglyceri de: less than 150 mg/dLBorderline High Triglyceride 150-199 mg/dLHigh Triglyceride: 200-499 mg/dLVery High Triglyceride: greater than or equal to 5OO mg/dL Cholesterol 169 <200 mg/dL [facility] Comment:Desirable Cholestero l: less than 200 mg/dLBorderline High Cholesterol: 200-239 mg/dLHigh Cholesterol: greater than 239 mg/dL LDL Cholesterol Calculated 102(H) <100 mg/dL [facility] Comment:Desirable LDL: less than 100 mg/dLNear Optimal/Above Optimal LDL: 110- 129 mg/dLBorderline High LDL: 130-159 mg/dLHigh LDL: 160-189 mg/dLVery High LDL: greater than or equal to 190 mg/dL HDL Cholesterol 51 >40 mg/dL [facility] Comment:Desirable HDL: great er than 40 mg/dL Note: This HDL assay may give artificially low results in patients with liver disease. Blood Venous blood specimen / Unknown 11/30/2023 8:34 AM EDT 11/30/2023 2:17 PM EDT Pao Hernandez MD LAB BLOOD ORDERABLES Final Re sult Performing Organization Address City/[facility]/ZIP Co de Phone Number [facility] [address] [place] [address] [phone] * Hm Colonoscopy (01/17/2019) Colonoscopy Normal Normal Rachel Provider HEALTH MAINTENANCE Final Result from Last 3 Months or Most Recently Relevant to Health Maintenance Insurance [facility] OPT[employer] (HMO D-SNP) Care Teams Revising Clerk Relationship Specialty Start Date End Date Pao Hernandez MD [address] [place] [address] PCP - General Family Medicine 06/21/20 Jad Jama MD [address] [facility] [address] [place] [address] Consulting Physician Gastroenterology 12/14/24 Mendel Hughes DO Consulting Physician Cardiology 12/14/24
--- OUTSIDE RECORDS SUMMARY | 2025-05-22 12:41 | XMS_ITS | Encounter Summary ---
Author Organization [employer] Address [address] [facility] [address] [place] [address] Care Team Providers Care Reconciliation Manager Name Role Phone Pao Hernnadez MD Primary Care Provider [phone] Encounter Details Date Type Department Care Team ([facility] st Contact Info) Description 01/31/[address] [facility] [address] [place] [address] Pao Hernandez MD [address] [place], [place] [phone] Social History Tobacco Use Types Packs/Day Years [...] Description 06/26/2025 9:30 AM EST Clinical Support [facility] [address] [place] [address] Jerri Jeffries, JASSON [address] [place] [address] documented as of this encounter Visit Diagnoses Not on filedocumented in this encounter Additional Health Concerns Assessment Noted Time PHQ-9 Depression Total Score: 0 05/25/20 24 10:08 AM EDT documented as of this encounter Care Teams Reconciliation Manager Relationship Specialty Start Date End Date Pao Hernandez MD [address] [place] [address] PCP - General Family Medicine 06/21/20 Jad Jama MD [address] [facility] [address] [place] [address] Consulting Physician Gastroenterology 12/14/24 Mendel Hughes DO Consulting Physician Cardiology 12/14/24 documented as of this encounter
--- OUTSIDE RECORDS SUMMARY | 2025-05-22 12:41 | XMS_ITS | Encounter Summary ---
Author Organization [employer] Address [address] [facility] [address] [place] [address] Care Team Providers Care Inspector Process Name Role Phone Pao Hernandez MD Primary Care Provider [phone] Encounter Details Date Type Department Care Team ([facility] Contact Info) Description 05/17/2025 Telephone [facility] [address] [place], [place] [phone] Pao Hernandez MD [address] [place], [place] [phone] Social History Tobacco Use Types Packs/Day Years [...] encounter Miscellaneous Notes * Telephone Encounter - Cheryl Kinney RN - 05/17/2025 11:59 AM EDT Pt walked in requesting a PE and TB test for program. Order placed and appointment scheduled. Pt todo lab PRN. documented in this encounter Plan of Treatment Upcoming Encounters Date Type Department Care Team ([facility] st Contact Info) Description 06/26/2025 9:30 AM EST Clinical Support [facility] [address] [place] [address] Jerri Jeffries RN [address] [place] [address] Scheduled Orders Name Type Priority Associated Diagnoses Orde r Schedule T-SPOT .TB Lab Routine Tuberculosis screening Expected: 05/17/2025 (Approximate), Expires: 05/17/2026 documented as of this encounter Visit Diagnoses Diagnosis Tuberculosis screening Screening examination for pulmonary tuberculosis documented in this encounter Additional Health Concerns Assessment Noted Time PHQ-9 Depression Total Score: 0 04/16/20 25 9:46 AM EDT documented as of this encounter Care Teams Inspector Process Relationship Specialty Start Date End Date Pao Hernandez MD [address] [place] [address] PCP - General Family Medicine 06/21/20 Jad Jama MD [address] [facility] [address] [place] [address] Consulting Physician Gastroenterology 12/14/24 Mendel Hughes DO Consulting Physician Cardiology 12/14/24 documented as of this encounter
[2025-05-22 13:58] LABS: MANUAL DIFF FLAG NO
[2025-05-22 14:01] LABS: Hematocrit 37.7 % (42.0-52.0); Hemoglobin 12.9 g/dl (14.0-18.0); Imm Gran Abs Auto 0.02 X10*3/uL (0.00-0.03); Imm Gran Pct Auto 0.3 % (0.0-0.4); Lymphocytes Absolute Auto 2.1 X10*3/uL (1.2-4.9); Mean Corpuscular HGB Conc 34.2 g/dl (31.0-36.0); Mean Corpuscular Hemoglobin 30.1 pg (27.0-33.0); Mean Corpuscular Volume 88.1 fL (80.0-98.0); NRBC Abs Auto 0.000 X10*3/uL (0.0-0.012); NRBC Pct Auto 0.0 /100WBC (0.0-0.2); Platelet Count 262 X10*3/uL (160-400); Red Blood Count 4.28 X10*6/uL (4.60-5.80); White Blood Count 6.4 X10*3/uL (4.8-10.8)
[2025-05-22 14:23] LABS: Appearance Urine Clear; Glucose Urine UA Negative (Negative); PH 5.5 (5.0-9.0); Specific Gravity - Urine 1.025 (1.005-1.025)
[2025-05-22 14:26] LABS: Alanine Aminotransferase 30 U/L (0-40); Albumin Level 4.5 g/dL (3.5-5.0); Alkaline Phosphatase 101 U/L (39-117); Anion Gap 11 (12-20); Aspartate Amino Transferase 44 U/L (5-37); Blood Urea Nitrogen 15 mg/dL (9-16); Calcium 8.9 mg/dL (8.4-10.2); Carbon Dioxide 27 mmol/L (22-29); Chloride 106 mmol/L (96-108); Cholesterol 167 mg/dL (<200); Estimated Glomerular Filt Rate > 60; HDL Cholesterol 41 mg/dL (>40); Potassium 3.8 mmol/L (3.3-5.1); Sodium 140 mmol/L (135-145); Total Protein 7.2 g/dL (6.5-8.0); Triglycerides 234 mg/dL (<150)
[2025-05-22 15:13] LABS: Microalbum/Creatinine Ratio Ur 24.2 ug/mg cr (<30)
[2025-05-24 21:33] LABS: TS Negative Control Passed; TS Panel A 2; TS Panel B 2; TS Positive Control Passed; TSpotTB Negative (Negative)
== END 2025-05-22 10:43 | disposition home or self-care (01) ==
LOC: HO.CHCLDS 10:42
PROVIDERS: PCP Family Medicine; Visit Provider Internal Medicine
DX: Z11.1 Encounter for screening for respiratory tuberculosis (principal); I10 Essential (primary) hypertension; M15.9 Polyosteoarthritis, unspecified
CPT/HCPCS: 36415; 80053; 80061; 81001; 82043; 82570; 85025; 86481

== ENCOUNTER 2025-05-25 14:07 | Outpatient (REF) | payer OTHER, SELFPAY ==
[2025-05-25 18:29] LABS: INTERNATIONAL NORM RATIO 1.0 (0.9-1.1); Prothrombin Time 11.0 SEC (10.9-12.4)
[2025-05-25 18:37] LABS: Reticulocytes Absolute 0.090 X10*6/uL (0.026-0.095)
[2025-05-25 18:38] LABS: Iron 48 mcg/dL (45-160); Percent Iron Saturation 19 % (15-50); Total Iron Binding Capacity 256 mcg/dL (228-428); Unsaturated Iron Binding 208 ug/dL
[2025-05-25 18:54] LABS: Ferritin 167 ng/mL (20-250)
[2025-05-26 10:29] LABS: HBS Num1 0.38 mIU/mL (0-7.99); ~Hepatitis B Surface Antibody NONREACTIVE (Nonreactive)
== END 2025-05-25 14:08 | disposition home or self-care (01) ==
LOC: HO.CHCLDS 14:07
PROVIDERS: Visit Provider Internal Medicine
DX: Z01.84 Encounter for antibody response examination (principal); Z51.81 Encounter for therapeutic drug level monitoring; R74.01 Elevation of levels of liver transaminase levels; D64.9 Anemia, unspecified
CPT/HCPCS: 36415; 82728; 82784; 83540; 85045; 85610; 86706

== ENCOUNTER 2025-07-16 09:58 | Outpatient (REF) | payer OTHER, SELFPAY | END 2025-07-16 09:59 | disposition home or self-care (01) | LOC: HO.CHCLDS 09:58 | PROVIDERS: Visit Provider Family Medicine | DX: I10 Essential (primary) hypertension (principal) | CPT/HCPCS: 86900; 86901 ==